=== PATIENT | female | born 1960 | race Caucasian/White ===

== ENCOUNTER 2018-01-19 11:42 | Emergency (ER) | payer SELFPAY ==
[2018-01-19 12:17] LABS: Absolute Lymphocytes (CBC) 3.2 K/uL (0.7-4.9); Absolute Monocytes 0.6 K/uL (0.1-1.3); Absolute Neutrophil 5.5 K/uL (1.8-8.0); Basophils % 1.1 % (0-1.3); Eosinophils % 1.2 % (0-4.4); Hematocrit 44.6 % (36.0-45.0); Lymphocytes % 33.4 % (15.3-44.8); MCH 29.4 pg (27.0-35.0); MCV 84.4 fL (80-100); MPV 7.2 fL (7.6-11.3); Monocytes % 6.8 % (3.3-12.3); RBC Red Blood Cell Count 5.29 M/uL (3.86-4.86)
[2018-01-19 12:47] LABS: ALT/SGPT 25 U/L (12-78); AST/SGOT 14 U/L (15-37); Albumin 3.7 g/dL (3.4-5.0); Alkaline Phosphatase 83 U/L (45-117); BUN Blood Urea Nitrogen 17 mg/dL (7-18); Bicarbonate 25 mmol/L (21-32); Bilirubin Direct < 0.1 mg/dL (0-0.2); Bilirubin Total 0.4 mg/dL (0.2-1.0); Glucose Level 134 mg/dL (74-106); Lipase 204 U/L (73-393); Protein, Total 6.9 g/dL (6.4-8.2); Sodium Level 138 mmol/L (136-145)
--- NOTE | 2018-01-19 12:51 | RAD REPORT ---
EXAM DESCRIPTION: RAD - Chest Single View - 01/19/2018 12:44 pm CLINICAL HISTORY: CHEST PAIN Chest pain. COMPARISON: CHEST SINGLE VIEW dated 07/30/2015; CHEST SINGLE VIEW dated 03/06/2015 FINDINGS: Portable technique limits examination quality. The lungs are grossly clear. The heart is normal in size. No displaced fractures. IMPRESSION: No acute intrathoracic process suspected.
--- NOTE | 2018-01-19 14:48 | ER ---
Nurse's Notes [facility] Name: Janell Presley Age: 57 yrs Sex: Female : 1960 Arrival Date: 01/19/2018 Time: 11:45 Bed 8 Private MD: Diagnosis: Chest pain, unspecified Presentation: 01/19 11:45 Presenting complaint: EMS states: pt was at [place], when she developed some sg shortness of breath and midsternal chestpain described a 10/10 pt reports having hx of anxiety, shortness of breath, anxiety, bipolar disorder. Once in the ambulance the pt was calmed down and reports her CP went down from a 10/10 to a 3/10 and reported feeling better. Transition of care: patient was not received from another setting of care. Onset of symptoms was January 19, 2018. Risk Assessment: Do you want to hurt yourself or someone else? Patient reports no desire to harm self or others. Initial Sepsis Screen: Does the patient meet any 2 criteria? No. Patient's initial sepsis screen is negative. Does the patient have a suspected source of infection? No. Patient's initial sepsis screen is negative. Care prior to arrival: None. 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 N/A - Post-menopause sg Historical: - Allergies: 11:49 HYDROCODONE; sg - Home Meds: 11:49 atorvastatin Oral once daily [Active]; citalopram 20 mg tab 1 tab once daily [Active]; sg gabapentin 900 mg Oral tab 1 tab 3 times per day [Active]; glimepiride 4 mg Oral tab 1 tab once daily [Active]; Lamictal 100 mg Oral tab 1 tab 2 times per day [Active]; Lyrica Oral 300 mg 3 times per day [Active]; metformin 500 mg Oral tab 1 tab 2 times per day [Active]; omeprazole 20 mg Oral cpDR 1 cap 2 times per day [Active]; Trazodone Oral nightly [Active]; Zantac 150 mg Oral tab once daily [Active]; - PMHx: 11:49 Bipolar disorder; Depression; Diabetes - NIDDM; GERD; High Cholesterol; neuropathy; sg - PSHx: 11:49 CLOSED HEAD INJURY; BACK SURGERY 1999; LEFT OOPHRECTOMY 2008; sg - Immunization history:: Adult Immunizations up to date. - Social history:: Smoking status: Patient uses tobacco products. - Ebola Screening: : Patient negative for fever greater than or equal to 101.5 degrees Fahrenheit, and additional compatible Ebola Virus Disease symptoms Patient denies exposure to infectious person Patient denies travel to an Ebola-affected area in the 21 days before illness onset No symptoms or risks identified at this time. - Family history:: not pertinent. - Hospitalizations: : No recent hospitalization is reported. Screenin:50 Abuse screen: Denies threats or abuse. Denies injuries from another. Nutritional sg screening: No deficits noted. Tuberculosis screening: No symptoms or risk factors identified. Never had TB. Fall Risk None identified. Assessment: 12:10 General: Appears in no apparent distress. comfortable, well groomed, well developed, sg well nourished, Behavior is calm, cooperative, appropriate for age. Pain: Complains of pain in mid-sternal area Pain does not radiate. Quality of pain is described as sharp. 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 Full function Speech is normal, Facial symmetry appears normal. Cardiovascular: Capillary refill is brisk in bilateral fingers Patient's skin is warm and dry. Chest pain is described as vague, quality is pressure, sharp, is located in anterior chest wall substernal area. Respiratory: Airway is patent Respiratory effort is even, unlabored, Respiratory pattern is regular, symmetrical, Breath sounds are clear. GI: Abdomen is round non-distended, Reports normal bowel habits, tolerance of fluids, tolerance of food. : No signs and/or symptoms were reported regarding the genitourinary system. EENT: No signs and/or symptoms were reported regarding the EENT system. Derm: Skin is pink, warm \T\ dry. Musculoskeletal: No signs and/or symptoms reported regarding the musculoskeletal system. 13:24 Reassessment: Patient appears in no apparent distress at this time. Patient and/or sg family updated on plan of care and expected duration. Pain level reassessed. Patient is alert, oriented x 3, equal unlabored respirations, skin warm/dry/pink. Patient states feeling better. Vital Signs: 11:50 BP 120 / 50; Pulse 72; Resp 16; Temp 97.9; Pulse Ox 98% on R/A; Weight 78.02 kg (R); sg Pain 3/10; 12:29 BP 116 / 51; Pulse 76; Resp 18; Pulse Ox 96% on R/A; Pain 3/10; sg 13:24 BP 113 / 59; Pulse 74 MON; Resp 16 S; Pulse Ox 96% on R/A; Pain 2/10; sg 14:44 BP 106 / 66; Pulse 77; Resp 17 S; Pulse Ox 98% on R/A; sg ED Course: 11:45 Patient arrived in ED. sg 11:46 Yoseph Grigsby NP is PHCP. pm1 11:46 Scott Funes MD is Attending Physician. pm1 11:47 Triage completed. sg 11:47 Arm band placed on. sg 11:51 Mike Nicolas RN is Primary Nurse. sg 12:00 Initial lab(s) drawn, by me, sent to lab. Missed attempt(s): 22 gauge in right sg antecubital area. Bleeding controlled, band aid applied, catheter tip intact. 12:43 X-ray completed. Portable x-ray completed in exam room. Patient tolerated procedure ml well. 12:45 XRAY Chest (1 view) In Process Unspecified. EDMS 13:24 Diet: Patient given water. sg 14:10 Repeat lab(s) drawn. by me, sent to lab. sg Administered Medications: No medications were administered Outcome: 14:47 Discharge ordered by . rn 14:53 Patient left the ED. sg Signatures: Dispatcher [employer] EDMS Mike Nicolas RN RN sg Lopez, Melissa ml Nieto, Roman, MD MD rn Marinas, Patrick, NP LAMBSKIN TRIMMER pm1 Corrections: (The following items were deleted from the chart) 12:27 12:19 Reassessment: sg
--- NOTE | 2018-01-19 14:48 | EDPHYS ---
Physician Documentation [facility] Name: Janell Presley Age: 57 yrs Sex: Female : 1960 Arrival Date: 01/19/2018 Time: 11:45 Bed 8 Private MD: ED Physician Scott Funes HPI: 01/19 11:54 This 57 yrs old Female presents to ER via EMS with complaints of Chest Pain, rn Anxiety. 11:54 The patient or guardian reports chest pain that is located primarily in the substernal rn area. Onset: just prior to arrival. The pain radiates to the left arm. The chest pain is described as a pressure. Duration: The patient or guardian reports a single episode, that is now resolved. Modifying factors: The symptoms are alleviated by nothing. the symptoms are aggravated by nothing. The patient has experienced a previous episode. Reports chest pain, pressure, radiates to left shoulder region, happened at rest, felt fine prior, no fever/cough/sob, no abd pain, has had episodes in past, told anxiety or heartburn. . 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 sg Historical: - Allergies: 11:49 HYDROCODONE; sg - Home Meds: 11:49 atorvastatin Oral once daily [Active]; citalopram 20 mg tab 1 tab once daily [Active]; sg gabapentin 900 mg Oral tab 1 tab 3 times per day [Active]; glimepiride 4 mg Oral tab 1 tab once daily [Active]; Lamictal 100 mg Oral tab 1 tab 2 times per day [Active]; Lyrica Oral 300 mg 3 times per day [Active]; metformin 500 mg Oral tab 1 tab 2 times per day [Active]; omeprazole 20 mg Oral cpDR 1 cap 2 times per day [Active]; Trazodone Oral nightly [Active]; Zantac 150 mg Oral tab once daily [Active]; - PMHx: 11:49 Bipolar disorder; Depression; Diabetes - NIDDM; GERD; High Cholesterol; neuropathy; sg - PSHx: 11:49 CLOSED HEAD INJURY; BACK SURGERY 1999; LEFT OOPHRECTOMY 2008; sg - Immunization history:: Adult Immunizations up to date. - Social history:: Smoking status: Patient uses tobacco products. - Ebola Screening: : Patient negative for fever greater than or equal to 101.5 degrees Fahrenheit, and additional compatible Ebola Virus Disease symptoms Patient denies exposure to infectious person Patient denies travel to an Ebola-affected area in the 21 days before illness onset No symptoms or risks identified at this time. - Family history:: not pertinent. - Hospitalizations: : No recent hospitalization is reported. ROS: 11:54 Constitutional: Negative for fever, chills, and weight loss, Eyes: Negative for injury, rn pain, redness, and discharge, Neck: Negative for injury, pain, and swelling, Cardiovascular: Negative for palpitations, and edema, Respiratory: Negative for shortness of breath, cough, wheezing, and pleuritic chest pain, Abdomen/GI: Negative for abdominal pain, vomiting, diarrhea, and constipation, MS/Extremity: Negative for injury and deformity, Skin: Negative for injury, rash, and discoloration, Neuro: Negative for headache, weakness, numbness, tingling, and seizure. Exam: 11:54 Constitutional: This is a well developed, well nourished patient who is awake, alert, rn and in no acute distress. Head/Face: Normocephalic, atraumatic. Eyes: Pupils equal round and reactive to light, extra-ocular motions intact. Lids and lashes normal. Conjunctiva and sclera are non-icteric and not injected. Cornea within normal limits. Periorbital areas with no swelling, redness, or edema. Neck: Trachea midline, no thyromegaly or masses palpated, and no cervical lymphadenopathy. Supple, full range of motion without nuchal rigidity, or vertebral point tenderness. No Meningismus. Cardiovascular: Regular rate and rhythm with a normal S1 and S2. No gallops, murmurs, or rubs. Normal PMI, no JVD. No pulse deficits. Respiratory: Lungs have equal breath sounds bilaterally, clear to auscultation and percussion. No rales, rhonchi or wheezes noted. No increased work of breathing, no retractions or nasal flaring. Abdomen/GI: Soft, non-tender, with normal bowel sounds. No distension or tympany. No guarding or rebound. No evidence of tenderness throughout. MS/ Extremity: Pulses equal, no cyanosis. Neurovascular intact. Full, normal range of motion. Equal circumference. Neuro: Awake and alert, GCS 15, oriented to person, place, time, and situation. Cranial nerves II-XII grossly intact. Motor strength 5/5 in all extremities. Sensory grossly intact. Vital Signs: 11:50 BP 120 / 50; Pulse 72; Resp 16; Temp 97.9; Pulse Ox 98% on R/A; Weight 78.02 kg (R); sg Pain 3/10; 12:29 BP 116 / 51; Pulse 76; Resp 18; Pulse Ox 96% on R/A; Pain 3/10; sg 13:24 BP 113 / 59; Pulse 74 MON; Resp 16 S; Pulse Ox 96% on R/A; Pain 2/10; sg 14:44 BP 106 / 66; Pulse 77; Resp 17 S; Pulse Ox 98% on R/A; sg MDM: 11:48 Patient medically screened. pm1 14:43 Differential diagnosis: acute myocardial infarction, acute pericarditis, anxiety, rn coronary artery disease chest wall pain, gastroesophageal reflux disease (GERD), pericarditis, pleurisy, pneumothorax, stable angina. Data reviewed: vital signs, nurses notes, lab test result(s), EKG, radiologic studies, plain films, and as a result, I will discharge patient. Counseling: I had a detailed discussion with the patient and/or guardian regarding: the historical points, exam findings, and any diagnostic results supporting the discharge/admit diagnosis, lab results, radiology results, the need for outpatient follow up, to return to the emergency department if symptoms worsen or persist or if there are any questions or concerns that arise at home. Refusal of service: The patient/guardian displays adequate decision making capability and despite a detailed discussion of alternatives, benefits, risks, and consequences refuses: Admission to the hospital for further work-up and treatment. Special discussion: Based on the patient's history, exam, and Dx evaluation, there is no indication for emergent intervention or inpatient Tx. It is understood by the patient/guardian that if the Sx's persist or worsen they need to return immediately for re-evaluation. I discussed with the patient/guardian in detail that at this point there is no indication for admission to the hospital. It is understood, however, that if the symptoms persist or worsen the patient needs to return immediately for re-evaluation. ED course: Pt sleeping, neg trop x 2, no ischemia on ECG, offered admission/observation for chest pain w/u since no clear etiology obtained, patient declines admission, wants to go home, understands risks, and will return if worsens, I recommended f/u with pcp and cardiology. . 01/19 11:50 Order name: LFT's; Complete Time: 12:51 rn 01/19 11:50 Order name: Basic Metabolic Panel; Complete Time: 12:51 rn 01/19 11:50 Order name: CBC with Diff; Complete Time: 12:51 rn 01/19 11:50 Order name: Troponin (emerg Dept Use Only); Complete Time: 12:51 rn 01/19 11:50 Order name: Lipase; Complete Time: 12:51 rn 01/19 14:04 Order name: Troponin (emerg Dept Use Only); Complete Time: 14:43 rn 01/19 11:50 Order name: XRAY Chest (1 view); Complete Time: 13:28 rn 01/19 11:50 Order name: EKG; Complete Time: 11:50 rn 01/19 11:50 Order name: Cardiac monitoring; Complete Time: 12:19 rn 01/19 11:50 Order name: EKG - Nurse/Tech; Complete Time: 12:19 rn 01/19 11:50 Order name: IV Saline Lock; Complete Time: 12:20 rn 01/19 11:50 Order name: Labs collected and sent; Complete Time: 12:19 rn 01/19 11:50 Order name: O2 Per Protocol; Complete Time: 12:19 rn 01/19 11:50 Order name: O2 Sat Monitoring; Complete Time: 12:43 rn Administered Medications: No medications were administered Disposition: 01/19/18 14:47 Discharged to Home. Impression: Chest pain, unspecified. - Condition is Stable. - Discharge Instructions: Nonspecific Chest Pain. - Medication Reconciliation Form, Thank You Letter, Antibiotic Education, Prescription Opioid Use form. - Follow up: Private Physician; When: As needed; Reason: Recheck today's complaints, Re-evaluation by your physician. - Problem is new. - Symptoms have improved. Signatures: Dispatcher [employer] EDMS Mike Nicolas RN MIKIE sg Scott Funes MD MD rn Marinas, Patrick, CONTACT PRINTER DRY FILM CONTACT PRINTER DRY FILM pm1 Corrections: (The following items were deleted from the chart) 14:53 14:47 01/19/2018 14:47 Discharged to Home. Impression: Chest pain, unspecified. sg Condition is Stable. Forms are Medication Reconciliation Form, Thank You Letter, Antibiotic Education, Prescription Opioid Use. Follow up: Private Physician; When: As needed; Reason: Recheck today's complaints, Re-evaluation by your physician. Problem is new. Symptoms have improved. rn
[2018-01-19 15:11] VITALS: TEMP 97.9
[2018-01-19 15:14] VITALS: BP 106/66; O2SAT 98
--- NOTE | 2018-01-20 11:44 | EKG ---
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
== END 2018-01-19 14:53 | disposition home or self-care (01) ==
LOC: ER 11:42
DX: R07.9 Chest pain, unspecified (principal); Z88.5 Allergy status to narcotic agent; E11.40 Type 2 diabetes mellitus with diabetic neuropathy, unspecified; Z79.84 Long term (current) use of oral hypoglycemic drugs; K21.9 Gastro-esophageal reflux disease without esophagitis; E78.00 Pure hypercholesterolemia, unspecified
CPT/HCPCS: 36415; 71045; 80048; 80076; 83690; 84484; 85025; 93005; 99283

== ENCOUNTER 2018-05-16 22:59 | Emergency (ER) | payer SELFPAY ==
[2018-05-16 23:50] LABS: Absolute Lymphocytes (CBC) 4.5 K/uL (0.7-4.9); Absolute Monocytes 0.7 K/uL (0.1-1.3); Absolute Neutrophil 4.7 K/uL (1.8-8.0); Eosinophils % 1.3 % (0-4.4); Hematocrit 39.4 % (36.0-45.0); Lymphocytes % 44.1 % (15.3-44.8); MCH 29.9 pg (27.0-35.0); MCV 85.4 fL (80-100); MPV 7.7 fL (7.6-11.3); Monocytes % 6.9 % (3.3-12.3); RBC Red Blood Cell Count 4.61 M/uL (3.86-4.86)
[2018-05-16 23:54] LABS: Protime INR 0.87
[2018-05-17 00:09] LABS: ALT/SGPT 27 U/L (12-78); AST/SGOT 12 U/L (15-37); Albumin 3.7 g/dL (3.4-5.0); Alkaline Phosphatase 84 U/L (45-117); BUN Blood Urea Nitrogen 22 mg/dL (7-18); Bicarbonate 26 mmol/L (21-32); Bilirubin Direct < 0.1 mg/dL (0-0.2); Bilirubin Total 0.4 mg/dL (0.2-1.0); Glucose Level 111 mg/dL (74-106); Magnesium 1.9 mg/dL (1.8-2.4); NT PRO-BNP 98 pg/mL (<125); Potassium 4.3 mmol/L (3.5-5.1); Protein, Total 6.6 g/dL (6.4-8.2); Sodium Level 137 mmol/L (136-145); Troponin (Emerg Dept Use Only) < 0.02 ng/mL (0.0-0.045)
--- NOTE | 2018-05-17 03:13 | EDPHYS ---
Physician Documentation [facility] Name: Janell Presley Age: 58 yrs Sex: Female : 1960 Arrival Date: 05/16/2018 Time: 23:01 Bed 14 Private MD: None, None ED Physician Luis Enrique Britt HPI: 05/17 03:06 This 58 yrs old Female presents to ER via Ambulatory with complaints of Chest gs Pain. 03:06 The patient or guardian reports chest pain that is located primarily in the anterior gs chest wall. Onset: 2 month(s) ago. The pain does not radiate. Associated signs and symptoms: Pertinent positives: cough, Pertinent negatives: abdominal pain, diaphoresis, shortness of breath. The chest pain is described as dull. Duration: The patient or guardian reports multiple episodes, that are intermittent, that wax and wane, with no pattern, the episodes last approximately 5 minute(s). Modifying factors: The symptoms are alleviated by nothing. the symptoms are aggravated by nothing. Severity of pain: At its worst the pain was moderate in the emergency department the pain has resolved. The patient has experienced similar episodes in the past, multiple times. Historical: - Allergies: 05/16 23:22 HYDROCODONE; jb4 23:22 Vicodin; jb4 - Home Meds: 23:22 atorvastatin Oral once daily [Active]; citalopram 20 mg tab 1 tab once daily [Active]; jb4 gabapentin 900 mg Oral tab 1 tab 3 times per day [Active]; glimepiride 4 mg Oral tab 1 tab once daily [Active]; Lamictal 100 mg Oral tab 1 tab 2 times per day [Active]; Lyrica Oral 300 mg 3 times per day [Active]; metformin 500 mg Oral tab 1 tab 2 times per day [Active]; omeprazole 20 mg Oral cpDR 1 cap 2 times per day [Active]; Trazodone Oral nightly [Active]; Zantac 150 mg Oral tab once daily [Active]; endomethasone [Active]; Lisinopril Oral [Active]; - PMHx: 23:22 Bipolar disorder; Depression; Diabetes - NIDDM; GERD; High Cholesterol; neuropathy; jb4 - PSHx: 23:22 CLOSED HEAD INJURY; BACK SURGERY 1999; LEFT OOPHRECTOMY 2008; jb4 - Immunization history:: Adult Immunizations up to date, Flu vaccine is not up to date. - Social history:: Smoking status: Patient uses tobacco products, smokes one-half pack cigarettes per day. - Ebola Screening: : No symptoms or risks identified at this time. ROS: 05/17 03:06 All other systems are negative. gs Exam: 03:06 Head/Face: Normocephalic, atraumatic. Eyes: Pupils equal round and reactive to light, gs extra-ocular motions intact. Lids and lashes normal. Conjunctiva and sclera are non-icteric and not injected. Cornea within normal limits. Periorbital areas with no swelling, redness, or edema. ENT: Nares patent. No nasal discharge, no septal abnormalities noted. Tympanic membranes are normal and external auditory canals are clear. Oropharynx with no redness, swelling, or masses, exudates, or evidence of obstruction, uvula midline. Mucous membranes moist. Neck: Trachea midline, no thyromegaly or masses palpated, and no cervical lymphadenopathy. Supple, full range of motion without nuchal rigidity, or vertebral point tenderness. No Meningismus. Chest/axilla: Normal chest wall appearance and motion. Nontender with no deformity. No lesions are appreciated. Cardiovascular: Regular rate and rhythm with a normal S1 and S2. No gallops, murmurs, or rubs. Normal PMI, no JVD. No pulse deficits. Respiratory: Lungs have equal breath sounds bilaterally, clear to auscultation and percussion. No rales, rhonchi or wheezes noted. No increased work of breathing, no retractions or nasal flaring. Abdomen/GI: Soft, non-tender, with normal bowel sounds. No distension or tympany. No guarding or rebound. No evidence of tenderness throughout. Back: No spinal tenderness. No costovertebral tenderness. Full range of motion. Skin: Warm, dry with normal turgor. Normal color with no rashes, no lesions, and no evidence of cellulitis. MS/ Extremity: Pulses equal, no cyanosis. Neurovascular intact. Full, normal range of motion. Neuro: Awake and alert, GCS 15, oriented to person, place, time, and situation. Cranial nerves II-XII grossly intact. Motor strength 5/5 in all extremities. Sensory grossly intact. Cerebellar exam normal. Normal gait. 03:06 Constitutional: The patient appears alert, awake. 03:06 ECG was reviewed by the Attending Physician. 03:10 ECG was reviewed by the Attending Physician. Vital Signs: 05/16 23:22 BP 120 / 60; Pulse 81; Resp 18; Temp 98.2(O); Pulse Ox 96% on R/A; Weight 84.82 kg (R); jb4 Height 5 ft. 8 in. (172.72 cm) (R); Pain 4/10; 05/17 01:00 BP 117 / 40; Pulse 70; Resp 16; Pulse Ox 96% on R/A; jb4 01:45 BP 99 / 58; Pulse 71; Resp 17; Pulse Ox 94% on R/A; jb4 03:01 BP 110 / 47; Pulse 63; Resp 16; Pulse Ox 96% on R/A; jb4 12 23:22 Body Mass Index 28.43 (84.82 kg, 172.72 cm) jb4 MDM: 05/16 23:31 Patient medically screened. 05/17 03:10 Differential diagnosis: coronary artery disease chest wall pain, congestive heart gs failure. Data reviewed: vital signs, nurses notes. Counseling: I had a detailed discussion with the patient and/or guardian regarding: the historical points, exam findings, and any diagnostic results supporting the discharge/admit diagnosis, lab results, radiology results, the need for outpatient follow up, a strategic partnership specialist. Response to treatment: the patient's symptoms have resolved after treatment, the patient's pain is gone, and as a result, I will discharge patient. 03:13 HEART Score: History: Slightly Suspicious (0), ECG: Normal (0), Age: > 45 and < 65 gs years (1), Risk Factors: > or = 3 Risk factors for atherosclerotic disease (2), Troponin: < or = 1 x Normal Limit (0). 05/16 23:32 Order name: Basic Metabolic Panel 05/16 23:32 Order name: CBC with Diff 05/16 23:32 Order name: LFT's; Complete Time: 00:48 05/16 23:32 Order name: Magnesium; Complete Time: 00:48 05/16 23:32 Order name: NT PRO-BNP; Complete Time: 00:48 05/16 23:32 Order name: PT-INR; Complete Time: 00:48 05/16 23:32 Order name: Troponin (emerg Dept Use Only); Complete Time: 00:48 gs 05/16 23:32 Order name: XRAY Chest (1 view) 05/16 23:32 Order name: EKG; Complete Time: 23:33 12 23:32 Order name: Cardiac monitoring; Complete Time: 23:35 12 23:32 Order name: EKG - Nurse/Tech; Complete Time: 23:35 05/16 23:33 Order name: Basic Metabolic Panel; Complete Time: 00:48 EDMS 12 23:33 Order name: CBC with Automated Diff; Complete Time: 00:48 EDMS 12 01:19 Order name: Troponin (emerg Dept Use Only); Complete Time: 03:03 05/16 23:32 Order name: IV Saline Lock; Complete Time: 23:35 05/16 23:32 Order name: Labs collected and sent; Complete Time: 23:35 05/16 23:32 Order name: O2 Per Protocol; Complete Time: 23:35 05/16 23:32 Order name: O2 Sat Monitoring; Complete Time: 23:35 gs EC:06 Rate is 67 beats/min. Rhythm is regular. NE interval is normal. QRS interval is normal. gs T waves are Normal. No ST changes noted. Clinical impression: Normal ECG. Interpreted by me. 03:10 Rate is 64 beats/min. Rhythm is regular. NE interval is normal. T waves are Normal. No gs ST changes noted. Clinical impression: Normal ECG. Interpreted by me. Administered Medications: No medications were administered Disposition: 05/17/18 03:12 Discharged to Home. Impression: Chest pain, unspecified. - Condition is Stable. - Discharge Instructions: Nonspecific Chest Pain. - Medication Reconciliation Form, Thank You Letter, Antibiotic Education, Prescription Opioid Use form. - Follow up: Gerald Alexis MD; When: 2 - 3 days; Reason: Re-evaluation by your physician. Signatures: Dispatcher [employer] EDRiaz Marti, RN RN jb4 Luis Enrique Britt MD MD gs Corrections: (The following items were deleted from the chart) 03:16 03:10 HEART Score: History: Slightly Suspicious (0), ECG: Normal (0), Age: > 45 and < gs 65 years (1), Risk Factors: 1 or 2 risk factors (1), [DM] Troponin: < or = 1 x Normal Limit (0), gs 03:28 03:12 05/17/2018 03:12 Discharged to Home. Impression: Chest pain, unspecified. jb4 Condition is Stable. Forms are Medication Reconciliation Form, Thank You Letter, Antibiotic Education, Prescription Opioid Use. Follow up: Gerald Alexis; When: 2 - 3 days; Reason: Re-evaluation by your physician. gs
--- NOTE | 2018-05-17 03:13 | ER ---
Nurse's Notes [facility] Name: Janell Presley Age: 58 yrs Sex: Female : 1960 Arrival Date: 05/16/2018 Time: 23:01 Bed 14 Private MD: None, None Diagnosis: Chest pain, unspecified Presentation: 05/16 23:12 Presenting complaint: Patient states: I have been having frequent chest pain, for the jb4 past few weeks. It doesn't really hurt I just have a pressure feeling on my chest. Transition of care: patient was not received from another setting of care. Onset of symptoms was May 16, 2018. Risk Assessment: Do you want to hurt yourself or someone else? Patient reports no desire to harm self or others. Initial Sepsis Screen: Does the patient meet any 2 criteria? No. Patient's initial sepsis screen is negative. Does the patient have a suspected source of infection? No. Patient's initial sepsis screen is negative. Care prior to arrival: None. 23:12 Method Of Arrival: Ambulatory jb4 23:12 Acuity: [place] 3 jb4 Historical: - Allergies: 23:22 HYDROCODONE; jb4 23:22 Vicodin; jb4 - Home Meds: 23:22 atorvastatin Oral once daily [Active]; citalopram 20 mg tab 1 tab once daily [Active]; jb4 gabapentin 900 mg Oral tab 1 tab 3 times per day [Active]; glimepiride 4 mg Oral tab 1 tab once daily [Active]; Lamictal 100 mg Oral tab 1 tab 2 times per day [Active]; Lyrica Oral 300 mg 3 times per day [Active]; metformin 500 mg Oral tab 1 tab 2 times per day [Active]; omeprazole 20 mg Oral cpDR 1 cap 2 times per day [Active]; Trazodone Oral nightly [Active]; Zantac 150 mg Oral tab once daily [Active]; endomethasone [Active]; Lisinopril Oral [Active]; - PMHx: 23:22 Bipolar disorder; Depression; Diabetes - NIDDM; GERD; High Cholesterol; neuropathy; jb4 - PSHx: 23:22 CLOSED HEAD INJURY; BACK SURGERY 1999; LEFT OOPHRECTOMY 2008; jb4 - Immunization history:: Adult Immunizations up to date, Flu vaccine is not up to date. - Social history:: Smoking status: Patient uses tobacco products, smokes one-half pack cigarettes per day. - Ebola Screening: : No symptoms or risks identified at this time. Screenin:24 Abuse screen: Denies threats or abuse. Nutritional screening: No deficits noted. jb4 Tuberculosis screening: No symptoms or risk factors identified. Fall Risk IV access (20 points). Assessment: 23:24 General: Appears in no apparent distress. comfortable, Behavior is calm, cooperative, jb4 appropriate for age. Pain: Complains of pain in chest Pain does not radiate. Pain currently is 4 out of 10 on a pain scale. Quality of pain is described as pressure, Pain began 1 day ago. Neuro: Level of Consciousness is awake, alert, obeys commands, Oriented to person, place, time, situation. Cardiovascular: Patient's skin is warm and dry. Rhythm is sinus rhythm. Respiratory: Airway is patent Respiratory effort is even, unlabored, Respiratory pattern is regular, symmetrical. GI: Reports nausea. : No signs and/or symptoms were reported regarding the genitourinary system. EENT: No signs and/or symptoms were reported regarding the EENT system. Derm: Skin is intact, Skin is pink, warm \T\ dry. Musculoskeletal: Circulation, motion, and sensation intact. 05/17 00:45 Reassessment: Patient appears in no apparent distress at this time. Patient and/or jb4 family updated on plan of care and expected duration. Pain level reassessed. Patient is alert, oriented x 3, equal unlabored respirations, skin warm/dry/pink. Pt complaining of increased chest pain. Provider notified, No new orders. EKG performed, Given to provider. 01:57 Reassessment: Patient appears in no apparent distress at this time. Patient and/or jb4 family updated on plan of care and expected duration. Pain level reassessed. Given water per pt request. Resting with eyes closed, respirations even and unlabored. 03:01 Reassessment: Patient appears in no apparent distress at this time. No changes from jb4 previously documented assessment. Patient and/or family updated on plan of care and expected duration. Pain level reassessed. 03:26 Reassessment: Patient appears in no apparent distress at this time. No changes from jb4 previously documented assessment. Patient and/or family updated on plan of care and expected duration. Pain level reassessed. Discussed D/c, F/u with pt, denies questions and concerns. Vital Signs: 05/16 23:22 BP 120 / 60; Pulse 81; Resp 18; Temp 98.2(O); Pulse Ox 96% on R/A; Weight 84.82 kg (R); jb4 Height 5 ft. 8 in. (172.72 cm) (R); Pain 4/10; 05/17 01:00 BP 117 / 40; Pulse 70; Resp 16; Pulse Ox 96% on R/A; jb4 01:45 BP 99 / 58; Pulse 71; Resp 17; Pulse Ox 94% on R/A; jb4 03:01 BP 110 / 47; Pulse 63; Resp 16; Pulse Ox 96% on R/A; jb4 12 23:22 Body Mass Index 28.43 (84.82 kg, 172.72 cm) jb4 ED Course: 05/16 23:01 Patient arrived in ED. sb2 23:01 None, None is Private Physician. sb2 23:04 Luis Enrique Britt MD is Attending Physician. gs 23:12 Riaz Dougherty, RN is Primary Nurse. jb4 23:15 Triage completed. jb4 23:22 Arm band placed on left wrist. EKG completed in triage. Results shown to MD. jb4 23:24 Patient has correct armband on for positive identification. Placed in gown. Bed in low jb4 position. Call light in reach. Side rails up X 1. classroom monitor on. Pulse ox on. NIBP on. 23:24 Patient maintains SpO2 saturation greater than 95% on room air. jb4 23:46 Inserted saline lock: 22 gauge in right antecubital area, using aseptic technique. ag4 Blood collected. 23:51 X-ray completed. Portable x-ray completed in exam room. Patient tolerated procedure kw well. 23:52 XRAY Chest (1 view) In Process Unspecified. EDMS 05/17 01:01 EKG done, by ED staff, reviewed by Luis Enrique Britt MD. ds4 03:12 Gerald Alexis MD is Referral Physician. gs 03:26 No provider procedures requiring assistance completed. IV discontinued, intact, jb4 bleeding controlled. Administered Medications: No medications were administered Outcome: 03:12 Discharge ordered by MD. gs 03:26 Discharged to home ambulatory. jb4 03:26 Condition: stable 03:26 Discharge instructions given to patient, Instructed on discharge instructions, follow up and referral plans. Demonstrated understanding of instructions, follow-up care. 03:28 Patient left the ED. jb4 Signatures: Dispatcher [employer] EDAngelina Rodriguez Donovan ds4 Riaz Dougherty RN RN jb4 Luis Enrique Britt MD MD gs Billeau, Sheri sb2 Maurizio Garcia ag4
[2018-05-17 03:35] VITALS: TEMP 98.2
[2018-05-17 03:39] VITALS: BP 110/47; O2SAT 96
--- NOTE | 2018-05-17 08:20 | RAD REPORT ---
EXAM DESCRIPTION: RAD - Chest Single View - 05/16/2018 11:52 pm CLINICAL HISTORY: CHEST PAIN Chest pain. COMPARISON: Chest Single View dated 01/19/2018; CHEST SINGLE VIEW dated 07/30/2015; CHEST SINGLE VIEW dated 03/06/2015 FINDINGS: Portable technique limits examination quality. The lungs are grossly clear. The heart is normal in size. No displaced fractures. IMPRESSION: No acute intrathoracic process suspected.
--- NOTE | 2018-05-17 08:29 | EKG ---
Test Date: 2018-05-16 Test Time: 23:12:56 Strategic Client Executive: AG3 MEASUREMENT RESULTS: Intervals: Rate: 67 SC: 188 QRSD: 86 QT: 380 QTc: 401 [place]: P: 53 SC: 188 QRS: 8 T: 62 INTERPRETIVE STATEMENTS: Normal sinus rhythm Normal ECG Compared to ECG 01/19/2018 11:45:30 Myocardial infarct finding no longer present Electronically Signed On 05-17-18 08:28:20 MANAGER LONG TERM CARE by Gerald Alexis
--- NOTE | 2018-05-17 08:32 | EKG ---
Test Date: 2018-05-17 Test Time: 00:54:22 Booking Officer: LINDEN MEASUREMENT RESULTS: Intervals: Rate: 64 [place]: 198 QRSD: 86 QT: 402 QTc: 414 [place]: P: 54 [place]: 198 QRS: 9 T: 56 INTERPRETIVE STATEMENTS: Normal sinus rhythm Normal ECG Compared to ECG 05/16/2018 23:12:56 No significant changes Electronically Signed On 05-17-18 08:32:02 DOT COMPLIANCE COORDINATOR by Gerald Alexis
== END 2018-05-17 03:28 | disposition home or self-care (01) ==
LOC: ER 22:59
DX: R07.9 Chest pain, unspecified (principal); E11.40 Type 2 diabetes mellitus with diabetic neuropathy, unspecified; E78.00 Pure hypercholesterolemia, unspecified; K21.9 Gastro-esophageal reflux disease without esophagitis; F31.9 Bipolar disorder, unspecified; F17.210 Nicotine dependence, cigarettes, uncomplicated; Z79.84 Long term (current) use of oral hypoglycemic drugs; Z79.899 Other long term (current) drug therapy
CPT/HCPCS: 36415; 71045; 80048; 80076; 83735; 83880; 84484; 85025; 85610; 93005; 99285

== ENCOUNTER 2018-09-26 09:26 | Emergency (ER) | payer OTHER ==
--- OUTSIDE RECORDS SUMMARY | 2018-09-26 09:29 | XMS REPORT ---
:1960 [facility] [address] [place] [address] Care Team Providers Name Role Phone Unavailable Unavailable Unavailable Problems This patient has no known problems. Allergies, Adverse Reactions, Alerts This patient has no known allergies or adverse reactions. Medications This patient has no known medications. Results Test Description Test Time Test Comments Text Results Atomic Results Result Comments SCR MAMM BILATERAL CAD 2018-07-11 15:56:42 - SCR MAMM BILATERAL CAD DIGITAL DIGITALBILATERAL DIGITAL SCREENING MAMMOGRAM WITH CAD: 07/05/2018CLINICAL: Asymptomatic. Current mammographic images were evaluated by either a Armasight M-Vu or a Semetric ImageChecker CAD (computer aided detection system). Comparison is made to exams dated 08/11/2016 mammogram - [facility], 12/03/2014 mammogram, and 04/12/2013 mammogram - [facility]. There are scattered fibroglandular tissues in both breasts. No suspicious mass, architectural distortion, malignant type calcification, or lymph node abnormality detected. Breast architecture is stable compared to prior exams.IMPRESSION: NEGATIVEThere is no mammographic evidence of malignancy. Resume annual screening mammography in one year. Yoseph bethea/roney:07/11/2018 15:56:42 Clerk Television Production: Nati Lilly MM, [facility] sent: BIRADS 1-2 Normal Mammogram BI-RADS: 1 Negative
[2018-09-26] MEDS ORDERED: ONDANSETRON 4 MG/2 ML VIAL ONE (10:18)
[2018-09-26] MEDS ORDERED: NA CHLORIDE 0.9% 1,000 ML ONE ×2 (10:18→12:07)
[2018-09-26 10:24] LABS: Absolute Monocytes 0.7 K/uL (0.1-1.3); Absolute Neutrophil 6.7 K/uL (1.8-8.0); Basophils % 1.3 % (0-1.3); Eosinophils % 1.6 % (0-4.4); Hematocrit 42.1 % (36.0-45.0); Lymphocytes % 27.8 % (15.3-44.8); MPV 7.1 fL (7.6-11.3); Monocytes % 6.2 % (3.3-12.3); RBC Red Blood Cell Count 5.03 M/uL (3.86-4.86)
[2018-09-26 10:41] LABS: Albumin 3.8 g/dL (3.4-5.0); Bilirubin Direct 0.2 mg/dL (0-0.2); Bilirubin Total 0.7 mg/dL (0.2-1.0); Potassium 4.7 mmol/L (3.5-5.1); Protein, Total 6.9 g/dL (6.4-8.2)
--- NOTE | 2018-09-26 14:30 | EDPHYS ---
Physician Documentation [facility] Name: Janell Presley Age: 58 yrs Sex: Female : 1960 Arrival Date: 09/26/2018 Time: 09:28 Bed 14 Private MD: ED Physician Luis Enrique Britt HPI: 09/26 10:00 This 58 yrs old Female presents to ER via Ambulatory with complaints of pm1 Vomiting/Diarrhea, Fever. 10:00 The patient presents to the emergency department with nausea, vomiting, diarrhea, pm1 abdominal pain, described as crampy. Onset: The symptoms/episode began/occurred today. Possible causes: accidental overdose of metformin. The symptoms are aggravated by nothing. The symptoms are alleviated by nothing. Associated signs and symptoms: Pertinent positives: abdominal pain, diarrhea, fever, nausea, vomiting. Severity of symptoms: in the emergency department the symptoms are worse. The patient has not experienced similar symptoms in the past. The patient has not recently seen a physician. Patient ran out of her gabapentin and started to take what she believed to be her father's gabapentin. The patient takes her gabapentin 4 times per day, TID and a HS dosage. Her father's medication ended up being metformin so the patient ended up taking approximately 4 grams of metformin daily for the past 4 days. 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 - Ebola Screening: : No symptoms or risks identified at this time. - Social history:: Smoking status: Patient/guardian denies using tobacco. ROS: 10:00 Constitutional: Negative for fever, chills, and weight loss, Eyes: Negative for injury, pm1 pain, redness, and discharge, ENT: Negative for injury, pain, and discharge, Neck: Negative for injury, pain, and swelling, Cardiovascular: Negative for chest pain, palpitations, and edema, Respiratory: Negative for shortness of breath, cough, wheezing, and pleuritic chest pain. 10:00 Back: Negative for injury and pain, : Negative for injury, bleeding, discharge, and swelling, MS/Extremity: Negative for injury and deformity, Skin: Negative for injury, rash, and discoloration, Neuro: Negative for headache, weakness, numbness, tingling, and seizure. 10:00 Abdomen/GI: Positive for nausea, vomiting, and diarrhea, abdominal cramps, Negative for constipation. Exam: 10:00 Constitutional: This is a well developed, well nourished patient who is awake, alert, pm1 and in no acute distress. Head/Face: Normocephalic, atraumatic. Eyes: Pupils equal round and reactive to light, extra-ocular motions intact. Lids and lashes normal. Conjunctiva and sclera are non-icteric and not injected. Cornea within normal limits. Periorbital areas with no swelling, redness, or edema. ENT: Nares patent. No nasal discharge, no septal abnormalities noted. Tympanic membranes are normal and external auditory canals are clear. Oropharynx with no redness, swelling, or masses, exudates, or evidence of obstruction, uvula midline. Mucous membranes moist. Neck: Trachea midline, no thyromegaly or masses palpated, and no cervical lymphadenopathy. Supple, full range of motion without nuchal rigidity, or vertebral point tenderness. No Meningismus. Chest/axilla: Normal chest wall appearance and motion. Nontender with no deformity. No lesions are appreciated. Cardiovascular: Regular rate and rhythm with a normal S1 and S2. No gallops, murmurs, or rubs. Normal PMI, no JVD. No pulse deficits. Respiratory: Lungs have equal breath sounds bilaterally, clear to auscultation and percussion. No rales, rhonchi or wheezes noted. No increased work of breathing, no retractions or nasal flaring. Abdomen/GI: Soft, non-tender, with normal bowel sounds. No distension or tympany. No guarding or rebound. No evidence of tenderness throughout. Back: No spinal tenderness. No costovertebral tenderness. Full range of motion. Skin: Warm, dry with normal turgor. Normal color with no rashes, no lesions, and no evidence of cellulitis. MS/ Extremity: Pulses equal, no cyanosis. Neurovascular intact. Full, normal range of motion. 10:00 Neuro: Orientation: is normal, Motor: is normal, moves all fours. Vital Signs: 09:31 BP 121 / 49; Pulse 65; Resp 20; Temp 98.4(O); Pulse Ox 100% ; aa5 10:49 BP 110 / 56; Pulse 66; Resp 18; Pulse Ox 100% on R/A; sg 13:09 BP 113 / 48; Pulse 80; Resp 18; Pulse Ox 98% ; mh5 14:00 BP 117 / 70; Pulse 74; Resp 19 S; Pulse Ox 100% on R/A; ca1 14:22 BP 126 / 77; Pulse 74; Resp 19; Pulse Ox 100% on R/A; ca1 MDM: 09:49 Patient medically screened. pm1 12:09 Data reviewed: vital signs. Data interpreted: Pulse oximetry: on room air is 100 %. pm1 Interpretation: normal. 12:14 ED course: Normal anion gap. Will give the patient additional fluids and repeat lactate pm1 level. 14:26 Counseling: I had a detailed discussion with the patient and/or guardian regarding: the pm1 historical points, exam findings, and any diagnostic results supporting the discharge/admit diagnosis, lab results, radiology results, the need for outpatient follow up, to return to the emergency department if symptoms worsen or persist or if there are any questions or concerns that arise at home. 09/26 09:53 Order name: Basic Metabolic Panel pm1 09/26 09:53 Order name: CBC with Diff pm1 09/26 09:53 Order name: Creatinine for Radiology; Complete Time: 11:26 pm1 09/26 09:53 Order name: Hepatic Function; Complete Time: 11:26 pm1 09/26 09:53 Order name: Lipase; Complete Time: 11:26 pm09/26 09:53 Order name: Lactate; Complete Time: 11:26 pm09/26 09:53 Order name: IV Saline Lock; Complete Time: 10:38 pm09/26 09:54 Order name: Basic Metabolic Panel; Complete Time: 11:26 EDMS 09/26 09:54 Order name: CBC with Automated Diff; Complete Time: 11:26 EDMS 09/26 12:10 Order name: Glucose, Ancillary Testing; Complete Time: 12:13 EDMS 09/26 14:14 Order name: Lactate Sepsis 2 HR Follow-up; Complete Time: 14:26 EDMS 09/26 09:53 Order name: Labs collected and sent; Complete Time: 10:27 pm1 09/26 09:53 Order name: Finger Stick; Complete Time: 10:37 pm1 Administered Medications: 10:35 Drug: NS 0.9% 1000 ml Route: IV; Rate: 1000 ml; Site: right wrist; sg 11:30 Follow up: Urine output 350 ml; Response: No adverse reaction; IV Status: Completed ca1 infusion 10:35 Drug: Zofran 4 mg Route: IVP; Site: right wrist; sg 12:30 Follow up: Response: No adverse reaction; Nausea is decreased ca1 11:53 Drug: NS 0.9% 1000 ml Route: IV; Rate: 1000 ml; Site: right hand; ca1 14:00 Follow up: Response: No adverse reaction; IV Status: Completed infusion ca1 Point of Care Testing: Blood Glucose: 09:32 Blood Glucose: 106 mg/dL; aa5 Ranges: Critical Glucose Levels:Adult <50 mg/dl or >400 mg/dl <40 mg/dl or >180 mg/dl Disposition: 09/26/18 14:30 Discharged to Home. Impression: Accidental drug overdose. - Condition is Stable. - Discharge Instructions: Drug Overdose. - Prescriptions for Zofran 4 mg Oral Tablet - take 1 tablet by ORAL route every 12 hours As needed; 20 tablet. - Medication Reconciliation Form, Thank You Letter, Antibiotic Education, Prescription Opioid Use form. - Follow up: Emergency Department; When: As needed; Reason: Worsening of condition. Follow up: Private Physician; When: 2 - 3 days; Reason: Recheck today's complaints, Continuance of care, Re-evaluation by your physician. - Problem is new. - Symptoms have improved. Addendum: 09/29/2018 00:11 Co-signature as Attending Physician, Luis Enrique Britt MD. g s Signatures: Dispatcher [employer] [facility] Mike Nicolas RN RN sg Madeline Parikh RN RN aa5 Yoseph Grigsby, PHYSICIAN NEONATOLOGY PHYSICIAN NEONATOLOGY pm1 Luis Enrique Britt MD MD Angely, Miri RN RN ca1 Corrections: (The following items were deleted from the chart) 09/26 14:54 14:30 09/26/2018 14:30 Discharged to Home. Impression: Accidental drug overdose. ca1 Condition is Stable. Forms are Medication Reconciliation Form, Thank You Letter, Antibiotic Education, Prescription Opioid Use. Follow up: Emergency Department; When: As needed; Reason: Worsening of condition. Follow up: Private Physician; When: 2 - 3 days; Reason: Recheck today's complaints, Continuance of care, Re-evaluation by your physician. Problem is new. Symptoms have improved. pm1 15:04 14:54 09/26/2018 14:30 Discharged to Home. Impression: Accidental drug overdose. ca1 Condition is Stable. Discharge Instructions: Drug Overdose. Forms are Medication Reconciliation Form, Thank You Letter, Antibiotic Education, Prescription Opioid Use. Follow up: Emergency Department; When: As needed; Reason: Worsening of condition. Follow up: Private Physician; When: 2 - 3 days; Reason: Recheck today's complaints, Continuance of care, Re-evaluation by your physician. Problem is new. Symptoms have improved. ca1
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
[2018-09-26 15:28] VITALS: TEMP 98.4
[2018-09-26 15:32] VITALS: O2SAT 100
[2018-09-26 15:33] VITALS: BP 126/77
== END 2018-09-26 15:04 | disposition home or self-care (01) ==
LOC: ER 09:26
DX: T38.3X1A Poisoning by insulin and oral hypoglycemic [antidiabetic] drugs, accidental (unintentional), initial encounter (principal); E11.9 Type 2 diabetes mellitus without complications; Z88.5 Allergy status to narcotic agent
CPT/HCPCS: 36415; 80048; 80076; 82962; 83605; 83690; 85025; 96361; 96374; 99284; J2405; J7030

== ENCOUNTER 2019-04-27 12:14 | Emergency (ER) | payer OTHER ==
--- OUTSIDE RECORDS SUMMARY | 2019-04-27 12:16 | XMS REPORT ---
:1960 [facility] Address [address] [place] [address] Dr. Early [address] [place] [id number] Care Team Providers Name Role Phone Unavailable [...] mammographic images were evaluated by either a [employer] M-Vu or a [employer] ImageChecker CAD (computer aided detection system). Comparison is made to exams dated 08/11/2016 mammogram - [facility], 12/03/2014 mammogram, and [facility]/12/[facility] There are scattered fibroglandular tissues in both breasts. No suspicious mass, architectural distortion, malignant type calcification, or lymph node abnormality detected. Breast architecture is stable compared to prior exams.IMPRESSION: NEGATIVEThere is no mammographic evidence of malignancy. Resume annual screening mammography in one year. Yoseph bethea/roney:07/11/2018 15:56:42 Electrotype Finisher: Nati Lilly MM, [facility]: BIRADS 1-2 Normal Mammogram BI-RADS: 1 Negative
--- NOTE | 2019-04-27 13:47 | EDPHYS ---
Physician Documentation [facility] Name: Janell Presley Age: 59 yrs Sex: Female : 1960 Arrival Date: 04/27/2019 Time: 12:16 Bed 20 Private MD: ED Physician Florentino Salgado HPI: 04/27 13:16 This 59 yrs old Female presents to ER via Ambulatory with complaints of Wrist kb Injury. 13:16 The patient or guardian reports decreased range of motion, injury, pain, swelling, kb tenderness. The complaints affect the left wrist diffusely. Context: The problem was sustained at home, resulted from a fall, on an outstretched hand. Onset: The symptoms/episode began/occurred started a few months ago after a fall and became worse today after a fall. Modifying factors: The symptoms are alleviated by nothing, the symptoms are aggravated by movement. Associated signs and symptoms: The patient has no apparent associated signs or symptoms. The patient has not experienced similar symptoms in the past. The patient has not recently seen a physician. Historical: - Allergies: 12:20 Vicodin; la1 12:20 Codeine; la1 - PMHx: 12:20 "Aortic valve leak"; Bipolar disorder; Depression; Diabetes - NIDDM; GERD; High la1 Cholesterol; Left carotid artery- 70% blockage; neuropathy; Right carotid artery- 30% blockage; - Immunization history:: Adult Immunizations up to date. - Social history:: Smoking status: Patient uses tobacco products, smokes one pack cigarettes per day. - Ebola Screening: : No symptoms or risks identified at this time. ROS: 13:13 Constitutional: Negative for fever, chills, and weight loss, ENT: Negative for injury, kb pain, and discharge, Neck: Negative for injury, pain, and swelling, Cardiovascular: Negative for chest pain, palpitations, and edema, Respiratory: Negative for shortness of breath, cough, wheezing, and pleuritic chest pain, Abdomen/GI: Negative for abdominal pain, nausea, vomiting, diarrhea, and constipation, Skin: Negative for injury, rash, and discoloration, Neuro: Negative for headache, weakness, numbness, tingling, and seizure. 13:13 MS/extremity: Positive for injury or acute deformity, pain, swelling, tenderness. Exam: 13:16 Constitutional: This is a well developed, well nourished patient who is awake, alert, kb and in no acute distress. Head/Face: Normocephalic, atraumatic. Neck: Trachea midline, no thyromegaly or masses palpated, and no cervical lymphadenopathy. Supple, full range of motion without nuchal rigidity, or vertebral point tenderness. No Meningismus. Chest/axilla: Normal chest wall appearance and motion. Nontender with no deformity. No lesions are appreciated. Cardiovascular: Regular rate and rhythm with a normal S1 and S2. No gallops, murmurs, or rubs. Normal PMI, no JVD. No pulse deficits. Respiratory: Lungs have equal breath sounds bilaterally, clear to auscultation and percussion. No rales, rhonchi or wheezes noted. No increased work of breathing, no retractions or nasal flaring. Abdomen/GI: Soft, non-tender, with normal bowel sounds. No distension or tympany. No guarding or rebound. No evidence of tenderness throughout. Back: No spinal tenderness. No costovertebral tenderness. Full range of motion. Skin: Warm, dry with normal turgor. Normal color with no rashes, no lesions, and no evidence of cellulitis. Neuro: Awake and alert, GCS 15, oriented to person, place, time, and situation. Cranial nerves II-XII grossly intact. Motor strength 5/5 in all extremities. Sensory grossly intact. Cerebellar exam normal. Normal gait. 13:16 Musculoskeletal/extremity: Extremities: grossly normal except: noted in the left wrist: decreased ROM, pain, swelling, tenderness, ROM: limited active range of motion due to pain, in the left wrist, Circulation is intact in all extremities. Sensation intact. Vital Signs: 12:20 BP 106 / 77; Pulse 94; Resp 16; Temp 98.4; Pulse Ox 100% on R/A; Weight 81.65 kg; la1 Height 5 ft. 8 in. (172.72 cm); 12:20 Body Mass Index 27.37 (81.65 kg, 172.72 cm) la1 MDM: 12:23 Patient medically screened. [facility] 13:13 Data reviewed: vital signs, nurses notes. Data interpreted: Pulse oximetry: on room air kb is 100 %. Interpretation: normal. Counseling: I had a detailed discussion with the patient and/or guardian regarding: the historical points, exam findings, and any diagnostic results supporting the discharge/admit diagnosis, radiology results, the need for outpatient follow up, a family practitioner, to return to the emergency department if symptoms worsen or persist or if there are any questions or concerns that arise at home. 04/27 12:29 Order name: Forearm Left XRAY 04/27 12:29 Order name: Hand Left 3 View XRAY 04/27 13:46 Order name: Wrist Splint; Complete Time: 13:51 kb Administered Medications: No medications were administered Disposition: 04/27/19 13:46 Discharged to Home. Impression: Pain in left wrist. - Condition is Stable. - Discharge Instructions: Wrist Pain, [id number], Wrist Sprain. - Prescriptions for Diclofenac Sodium 75 mg Oral Tablet, Delayed Release (E.C.) - take 1 tablet by ORAL route 2 times per day As needed; 30 tablet. - Medication Reconciliation Form, Thank You Letter, Antibiotic Education, Prescription Opioid Use form. - Follow up: Emergency Department; When: As needed; Reason: Worsening of condition. Follow up: Private Physician; When: 2 - 3 days; Reason: Recheck today's complaints, Continuance of care, Re-evaluation by your physician. Addendum: 04/29/2019 06:59 Co-signature as Attending Physician, Florentino Salgado MD I agree with the assessment and c prasad plan of care. Signatures: Dispatcher [employer] EDDai White, MANAGER CONSUMER INSIGHTS-C MANAGER CONSUMER INSIGHTS-Ckb Florentino Salgado MD MD cha Calderon, Audri, RN RN aa5 Brayden He RN RN la1 Corrections: (The following items were deleted from the chart) 04/27 13:58 13:46 04/27/2019 13:46 Discharged to Home. Impression: Pain in left wrist. Condition is aa5 Stable. Forms are Medication Reconciliation Form, Thank You Letter, Antibiotic Education, Prescription Opioid Use. Follow up: Emergency Department; When: As needed; Reason: Worsening of condition. Follow up: Private Physician; When: 2 - 3 days; Reason: Recheck today's complaints, Continuance of care, Re-evaluation by your physician. kb
--- NOTE | 2019-04-27 13:47 | ER ---
Nurse's Notes [facility] Name: Janell Presley Age: 59 yrs Sex: Female : 1960 Arrival Date: 04/27/2019 Time: 12:16 Bed 20 Private MD: Diagnosis: Pain in left wrist Presentation: 04/27 12:19 Presenting complaint: Patient states: I tripped and fell and hurt my left wrist. la1 Transition of care: patient was not received from another setting of care. Onset of symptoms was April 27, 2019. Risk Assessment: Do you want to hurt yourself or someone else? Patient reports no desire to harm self or others. Risk Assessment: Do you want to hurt yourself or someone else?. Initial Sepsis Screen: Does the patient meet any 2 criteria? No. Patient's initial sepsis screen is negative. Does the patient have a suspected source of infection? No. Patient's initial sepsis screen is negative. Care prior to arrival: None. 12:19 Method Of Arrival: Ambulatory la1 12:19 Acuity: [place] 4 la1 Triage Assessment: 12:40 Injury Description: Fall. aa5 Historical: - Allergies: 12:20 Vicodin; la1 12:20 Codeine; la1 - PMHx: 12:20 "Aortic valve leak"; Bipolar disorder; Depression; Diabetes - NIDDM; GERD; High la1 Cholesterol; Left carotid artery- 70% blockage; neuropathy; Right carotid artery- 30% blockage; - Immunization history:: Adult Immunizations up to date. - Social history:: Smoking status: Patient uses tobacco products, smokes one pack cigarettes per day. - Ebola Screening: : No symptoms or risks identified at this time. Screenin:35 Abuse screen: Denies threats or abuse. Nutritional screening: No deficits noted. em Tuberculosis screening: No symptoms or risk factors identified. Fall Risk None identified. Assessment: 12:40 General: Appears in no apparent distress. comfortable, Behavior is calm, cooperative. em Pain: Complains of pain in dorsal aspect of left forearm and left wrist Pain currently is 6 out of 10 on a pain scale. Neuro: Level of Consciousness is awake, alert, obeys commands, Oriented to person, place, time, situation, Appropriate for age. Cardiovascular: Capillary refill < 3 seconds Patient's skin is warm and dry. Respiratory: Airway is patent Respiratory effort is even, unlabored, Respiratory pattern is regular, symmetrical. Derm: Skin is intact, is healthy with good turgor, Skin is pink, warm \\T\\ dry. Musculoskeletal: Capillary refill < 3 seconds, Range of motion: intact in left wrist Swelling absent. 12:40 Reassessment: I agree with assessment completed by Milo Arias LVN . aa5 Vital Signs: 12:20 BP 106 / 77; Pulse 94; Resp 16; Temp 98.4; Pulse Ox 100% on R/A; Weight 81.65 kg; la1 Height 5 ft. 8 in. (172.72 cm); 12:20 Body Mass Index 27.37 (81.65 kg, 172.72 cm) la1 ED Course: 12:16 Patient arrived in ED. as 12:19 Triage completed. la1 12:21 Arm band placed on right wrist. la1 12:23 Florentino Salgado MD is Attending Physician. presley 12:24 Milo Arias LVN is Primary Nurse. em 12:25 Dai Santana FNP-C is [facility]. kb 12:35 Patient has correct armband on for positive identification. Bed in low position. Call em light in reach. 12:35 No provider procedures requiring assistance completed. Patient did not have IV access em during this emergency room visit. 12:57 Forearm Left XRAY In Process Unspecified. EDMS 12:57 Hand Left 3 View XRAY In Process Unspecified. EDMS 12:57 X-ray completed. Portable x-ray completed in exam room. Patient tolerated procedure je2 well. Administered Medications: No medications were administered Outcome: 13:46 Discharge ordered by . kb 13:58 Discharged to home ambulatory. aa5 13:58 Condition: good 13:58 Discharge instructions given to patient, Instructed on discharge instructions, follow up and referral plans. Demonstrated understanding of instructions, follow-up care. 13:58 Patient left the ED. aa5 Signatures: Dispatcher [employer] EDDai White FNP-C FNP-Florentino Pinedo MD MD cha Munoz, Edgar, LVN LVN em Saba Presley Audri, RN RN aa5 Brayden He RN RN la1 Celio Brower je2
[2019-04-27 14:03] VITALS: BP 106/77; TEMP 98.4; O2SAT 100
--- NOTE | 2019-04-27 14:26 | RAD REPORT ---
EXAM DESCRIPTION: RAD - Forearm Left - 04/27/2019 12:56 pm CLINICAL HISTORY: Fall, left arm and wrist pain COMPARISON: None. FINDINGS: No fracture is identified. There is no dislocation or periosteal reaction noted. Degenerat laure changes are present at the trapezium first metacarpal articulation. No foreign body or other soft tissue abnormality. IMPRESSION: No fracture or acute findings to the left forearm or wrist joint. Advanced for age degenerative change at the trapezium first metacarpal articulation.
--- NOTE | 2019-04-27 14:29 | RAD REPORT ---
EXAM DESCRIPTION: RAD - Hand Left 3 View - 04/27/2019 12:56 pm CLINICAL HISTORY: Trip and fall, left hand pain bold COMPARISON: None. FINDINGS: Distal radius and ulna are intact. Patient has advanced for age degenerative change at the trapezial first metacarpal articulation. There is joint space narrowing, spurring and partial sublux ation of the first metacarpal. Small bone density on the radial side of this joint is probably relate d to degenerative change. A small avulsed fracture is not entirely excluded. Correlation is needed wi th any acute pain symptoms localizing to this joint. Otherwise no possible fracture or acute bone process seen. Patient has mild IP joint degenerative presley nge with joint space narrowing. No spurring or erosive change. No pathologic bone process. No foreign body or other soft tissue abnormality. IMPRESSION: Advanced for age degenerative change at the trapezial first metacarpal articulation. Small bone density on the radial side of this joint could potentially be a small fracture though this is more likely degenerative. Correlation is needed with any localizing symptoms. Hand and wrist are otherwise clear of acute or significant finding.
== END 2019-04-27 13:58 | disposition home or self-care (01) ==
LOC: ER 12:14
DX: M25.532 Pain in left wrist (principal); W01.0XXA Fall on same level from slipping, tripping and stumbling without subsequent striking against object, initial encounter; Y93.9 Activity, unspecified; Y92.9 Unspecified place or not applicable; Z88.6 Allergy status to analgesic agent; F17.210 Nicotine dependence, cigarettes, uncomplicated
CPT/HCPCS: 99283

== ENCOUNTER 2019-08-02 11:33 | Observation (INO) | payer OTHER ==
--- OUTSIDE RECORDS SUMMARY | 2019-08-02 11:35 | XMS REPORT ---
:1960 [facility] Address [address] [place] [address] Dr. Early [address] [place] [id number] Care Team Providers Name Role Phone Unavailable [...] mammographic images were evaluated by either a [employer] M-Vu or a [employer] ImageChecker CAD (computer aided detection system). Comparison is made to exams dated 08/11/2016 mammogram - [facility], 12/03/2014 mammogram, and [facility]. There are scattered fibroglandular tissues in both breasts. No suspicious mass, architectural distortion, malignant type calcification, or lymph node abnormality detected. Breast architecture is stable compared to prior exams.IMPRESSION: NEGATIVEThere is no mammographic evidence of malignancy. Resume annual screening mammography in one year. Yoseph bethea/roney:07/11/2018 15:56:42 Adjunct Physics Instructor: Nati Lilly MM, [facility] sent: BIRADS 1-2 Normal Mammogram BI-RADS: 1 Negative
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
[2019-08-02] MEDS ORDERED: NITROGLYCERIN 0.4 MG/TAB SL ONE (12:13)
[2019-08-02 12:17] LABS: Absolute Lymphocytes (CBC) 2.8 K/uL (0.7-4.9); Basophils % 1.4 % (0-1.3); Lymphocytes % 26.6 % (15.3-44.8); MPV 7.3 fL (7.6-11.3); RBC Red Blood Cell Count 5.42 M/uL (3.86-4.86)
[2019-08-02 13:22] LABS: ALT/SGPT 37 U/L (12-78); AST/SGOT 20 U/L (15-37); Alkaline Phosphatase 85 U/L (45-117); BUN Blood Urea Nitrogen 20 mg/dL (7-18); Bicarbonate 28 mmol/L (21-32); Bilirubin Direct 0.1 mg/dL (0-0.2); Bilirubin Total 0.5 mg/dL (0.2-1.0); Glucose Level 77 mg/dL (74-106); Lipase 106 U/L (73-393); NT PRO-BNP 110 pg/mL (<125); Potassium 4.3 mmol/L (3.5-5.1); Sodium Level 141 mmol/L (136-145); Troponin (Emerg Dept Use Only) < 0.02 ng/mL (0.0-0.045)
--- NOTE | 2019-08-02 13:53 | ER ---
Nurse's Notes [facility] Name: Janell Presley Age: 59 yrs Sex: Female : 1960 Arrival Date: 08/02/2019 Time: 11:34 Bed 5 Private MD: Diagnosis: Chest pain, unspecified Presentation: 08/02 11:51 Presenting complaint: Patient states: midsternal chest pain started around 11am feels iw like pressure through her back. Transition of care: patient was not received from another setting of care. Onset of symptoms was August 02, 2019. Risk Assessment: Do you want to hurt yourself or someone else?. Initial Sepsis Screen: Does the patient meet any 2 criteria? No. Patient's initial sepsis screen is negative. Does the patient have a suspected source of infection? No. Patient's initial sepsis screen is negative. Care prior to arrival: None. 11:51 Method Of Arrival: Ambulatory iw 11:51 Acuity: [place] 2 iw Triage Assessment: 12:00 General: Appears in no apparent distress. comfortable, Behavior is cooperative, bp appropriate for age, anxious. Pain: Complains of pain in chest. EENT: No deficits noted. Neuro: No deficits noted. Cardiovascular: Rhythm is sinus rhythm. Respiratory: No deficits noted. GI: No signs and/or symptoms were reported involving the gastrointestinal system. : No signs and/or symptoms were reported regarding the genitourinary system. Derm: No deficits noted. Musculoskeletal: No deficits noted. Historical: - Allergies: 11:55 Codeine; iw 11:55 Vicodin; iw - Home Meds: 11:55 atorvastatin Oral once daily [Active]; citalopram 20 mg tab 1 tab once daily [Active]; iw endomethasone [Active]; gabapentin 900 mg Oral tab 1 tab 3 times per day [Active]; glimepiride 4 mg Oral tab 1 tab once daily [Active]; Lamictal 100 mg Oral tab 1 tab 2 times per day [Active]; lisinopril Oral [Active]; Lyrica Oral 300 mg 3 times per day [Active]; metformin 500 mg Oral tab 1 tab 2 times per day [Active]; omeprazole 20 mg Oral cpDR 1 cap 2 times per day [Active]; Trazodone Oral nightly [Active]; Zantac 150 mg Oral tab once daily [Active]; - PMHx: 11:55 "Aortic valve leak"; Bipolar disorder; Depression; Diabetes - NIDDM; GERD; High iw Cholesterol; Left carotid artery- 70% blockage; neuropathy; Right carotid artery- 30% blockage; - Immunization history:: Adult Immunizations up to date. - Coronavirus screen:: The patient has NOT traveled to [place] in the past 14 days. The patient has NOT had contact with known/suspected case of Coronavirus?. - Family history:: not pertinent. - Social history:: Smoking status: Patient reports the use of cigarette tobacco products, smokes one-half pack cigarettes per day. - Hospitalizations: : No recent hospitalization is reported. - Ebola Screening: : No symptoms or risks identified at this time. Screenin:55 Abuse screen: Denies threats or abuse. Denies injuries from another. Nutritional sv screening: No deficits noted. Tuberculosis screening: No symptoms or risk factors identified. Fall Risk None identified. Assessment: 12:00 General: SEE TRIAGE NOTE. bp 12:00 Pain: Pain radiates to back Pain began 1 hour ago. bp 12:25 General: Appears in no apparent distress. comfortable, well groomed, well developed, sv Behavior is calm, cooperative, appropriate for age. Pain: Denies pain. Neuro: Level of Consciousness is awake, alert, obeys commands, Oriented to person, place, time, situation, Moves all extremities. Full function Gait is steady, Speech is normal. Cardiovascular: Patient's skin is warm and dry. Pulses are palpable in right radial artery and left radial artery Rhythm is sinus rhythm Chest pain is denied. Respiratory: Airway is patent Respiratory effort is even, unlabored, Respiratory pattern is regular, symmetrical. Derm: Skin is intact, Skin is pink, warm \\T\\ dry. Musculoskeletal: Range of motion: intact in all extremities. 13:30 Reassessment: LABS RECOLLECTED. VS STABLE ON MONITOR. NO S/S ACUTE DISTRESS. bp 14:00 Reassessment: ADMIT INITIATED. bp 14:46 Reassessment: ADMIT COMPLETED. PT ALANA RM 429, DX WITH CHEST PAIN. bp Vital Signs: 11:55 BP 112 / 51; Pulse 73; Resp 16 S; Temp 98.0; Pulse Ox 99% on R/A; Weight 83.91 kg; iw Height 5 ft. 8 in. (172.72 cm); Pain 0/10; 13:00 BP 109 / 96; Pulse 94; Resp 24; Pulse Ox 96% ; ah 14:56 BP 91 / 76; Pulse 78; Resp 13; Temp 98; Pulse Ox 99% ; bp 11:55 Body Mass Index 28.13 (83.91 kg, 172.72 cm) ED Course: 11:34 Patient arrived in ED. as 11:41 Scott Funes MD is Attending Physician. rn 11:53 Triage completed. iw 11:54 Toma Sanabria RN is Primary Nurse. sv 11:54 Arm band placed on. sv 11:55 Patient has correct armband on for positive identification. Bed in low position. Call sv light in reach. steeler on. Pulse ox on. NIBP on. 12:30 Inserted saline lock: 20 gauge in right antecubital area, using aseptic technique. sv Blood collected. Flushed right antecubital with 5 ml normal saline. 13:00 X-ray(s) taken. sv 13:10 Lab(s) recollected, by me, sent to lab. sv 13:14 XRAY Chest (1 view) Sent. sv 13:35 Lipase Sent. sv 13:36 Basic Metabolic Panel Sent. sv 13:36 CBC with Diff Sent. sv 13:36 LFT's Sent. sv 13:36 NT PRO-BNP Sent. sv 13:36 Troponin (emerg Dept Use Only) Sent. sv 13:52 Tristian Burgos MD is Hospitalizing Provider. rn 15:02 No provider procedures requiring assistance completed. Patient admitted, IV remains in bp place. Patient maintains SpO2 saturation greater than 95% on room air. Administered Medications: 13:35 Not Given (Physician Discretion): Nitroglycerin 0.4 mg Sublingual once sv Outcome: 13:52 Decision to Hospitalize by Provider. rn 15:02 Admitted to Tele accompanied by tech, via wheelchair, room 429, with chart, Report bp called to KHRIS DELUNA 15:02 Condition: stable 15:02 Instructed on the need for admit. 15:14 Patient left the ED. bp Signatures: Toma Sanabria RN RN sv Martinez, Amelia as Williams, Irene, RN RN Scott Funes MD MD rn Peltier, Brian, RN RN bp Harris, Amy, RN RN Corrections: (The following items were deleted from the chart) 12:07 11:55 BP 112 / 51; Pulse 73bpm; Resp 16bpm; Spontaneous; iw iw
--- NOTE | 2019-08-02 13:53 | EDPHYS ---
Physician Documentation [facility] Name: Janell Presley Age: 59 yrs Sex: Female : 1960 Arrival Date: 08/02/2019 Time: 11:34 Bed 5 Private MD: ED Physician Scott Funes HPI: 08/02 12:02 This 59 yrs old Female presents to ER via Ambulatory with complaints of Chest rn Pain. 12:02 The patient or guardian reports chest pain that is located primarily in the substernal rn area. Onset: 40 minute(s) ago. The pain radiates to right jaw. Associated signs and symptoms: Pertinent positives: shortness of breath, Pertinent negatives: abdominal pain, cough, diaphoresis, near syncope, palpitations, recent travel, vomiting. The chest pain is described as squeezing. Duration: The patient or guardian reports a single episode, that is still ongoing. Modifying factors: The symptoms are alleviated by nothing. the symptoms are aggravated by nothing. Severity of pain: At its worst the pain was moderate in the emergency department the pain has improved. The patient has experienced similar episodes in the past. Reports chest pain, central, radiates to right jaw, now lasting 40 min, slowly improving after taking her meds and aspirin. No fever/cough/trauma. + assoc with sob. No abd pain/vomiting.. Historical: - Allergies: 11:55 Codeine; iw 11:55 Vicodin; iw - Home Meds: 11:55 atorvastatin Oral once daily [Active]; citalopram 20 mg tab 1 tab once daily [Active]; iw endomethasone [Active]; gabapentin 900 mg Oral tab 1 tab 3 times per day [Active]; glimepiride 4 mg Oral tab 1 tab once daily [Active]; Lamictal 100 mg Oral tab 1 tab 2 times per day [Active]; lisinopril Oral [Active]; Lyrica Oral 300 mg 3 times per day [Active]; metformin 500 mg Oral tab 1 tab 2 times per day [Active]; omeprazole 20 mg Oral cpDR 1 cap 2 times per day [Active]; Trazodone Oral nightly [Active]; Zantac 150 mg Oral tab once daily [Active]; - PMHx: 11:55 "Aortic valve leak"; Bipolar disorder; Depression; Diabetes - NIDDM; GERD; High iw Cholesterol; Left carotid artery- 70% blockage; neuropathy; Right carotid artery- 30% blockage; - Immunization history:: Adult Immunizations up to date. - Coronavirus screen:: The patient has NOT traveled to [place] in the past 14 days. The patient has NOT had contact with known/suspected case of Coronavirus?. - Family history:: not pertinent. - Social history:: Smoking status: Patient reports the use of cigarette tobacco products, smokes one-half pack cigarettes per day. - Hospitalizations: : No recent hospitalization is reported. - Ebola Screening: : No symptoms or risks identified at this time. ROS: 12:02 Constitutional: Negative for fever, chills, and weight loss, Eyes: Negative for injury, rn pain, redness, and discharge, Neck: Negative for injury, pain, and swelling, Cardiovascular: Negative for palpitations, and edema, Respiratory: Negative for cough, wheezing, and pleuritic chest pain, Abdomen/GI: Negative for abdominal pain, nausea, vomiting, diarrhea, and constipation, MS/Extremity: Negative for injury and deformity, Skin: Negative for injury, rash, and discoloration, Neuro: Negative for headache, weakness, numbness, tingling, and seizure. Exam: 12:02 Constitutional: This is a well developed, well nourished patient who is awake, alert, rn and in no acute distress. Ambulatory to room. Head/Face: Normocephalic, atraumatic. Eyes: Pupils equal round and reactive to light, extra-ocular motions intact. Lids and lashes normal. Conjunctiva and sclera are non-icteric and not injected. Cornea within normal limits. Periorbital areas with no swelling, redness, or edema. Cardiovascular: Regular rate and rhythm. No pulse deficits. Respiratory: No increased work of breathing, no retractions or nasal flaring. Abdomen/GI: soft, non-tender MS/ Extremity: Pulses equal, no cyanosis. Neurovascular intact. Full, normal range of motion. Equal circumference. Neuro: Awake and alert, GCS 15, oriented to person, place, time, and situation. Motor strength 5/5 in all extremities. Cerebellar exam normal. Normal gait. Vital Signs: 11:55 BP 112 / 51; Pulse 73; Resp 16 S; Temp 98.0; Pulse Ox 99% on R/A; Weight 83.91 kg; iw Height 5 ft. 8 in. (172.72 cm); Pain 0/10; 13:00 BP 109 / 96; Pulse 94; Resp 24; Pulse Ox 96% ; ah 14:56 BP 91 / 76; Pulse 78; Resp 13; Temp 98; Pulse Ox 99% ; bp 11:55 Body Mass Index 28.13 (83.91 kg, 172.72 cm) iw MDM: 11:41 Patient medically screened. rn 13:51 Differential diagnosis: acute myocardial infarction, coronary artery disease chest wall rn pain, Cholelithiasis costochondritis, esophagitis, gastritis, gastroesophageal reflux disease (GERD), pericarditis, pleurisy, pneumonia, pneumothorax, stable angina, unstable angina. The patient was not given aspirin in the Emergency Department. Patient reports taking aspirin within the past 24 hours. Data reviewed: vital signs, nurses notes, and as a result, I will admit patient. Counseling: I had a detailed discussion with the patient and/or guardian regarding: the historical points, exam findings, and any diagnostic results supporting the discharge/admit diagnosis, lab results, radiology results, the need for further work-up and treatment in the hospital. Response to treatment: the patient's condition has returned to base line, the patient is now symptom free, and as a result, I will admit patient. Admission orders: after a detailed discussion of the patient's condition and case, the admit orders are written by me. ED course: Pt with multiple risk factors, neg trop and ecg, will admit for cardiology eval and stress test. . 08/02 11:55 Order name: Basic Metabolic Panel rn 08/02 11:55 Order name: CBC with Diff rn 08/02 11:55 Order name: LFT's rn 08/02 11:55 Order name: NT PRO-BNP rn 08/02 11:55 Order name: Troponin (emerg Dept Use Only) rn 08/02 11:55 Order name: Lipase rn 08/02 11:55 Order name: XRAY Chest (1 view) rn 08/02 12:22 Order name: CBC with Automated Diff; Complete Time: 13:27 [facility]CO 08/02 13:23 Order name: Basic Metabolic Panel; Complete Time: 13:27 [facility]CO 08/02 13:23 Order name: Liver (Hepatic) Function; Complete Time: 13:27 [facility] 08/02 13:23 Order name: Troponin (Emerg Dept Use Only); Complete Time: 13:27 [facility] 08/02 13:23 Order name: NT PRO-BNP; Complete Time: 13:27 [facility] 08/02 13:23 Order name: Lipase; Complete Time: 13:27 [facility] 08/02 14:23 Order name: RAD [facility]CO 08/02 11:55 Order name: EKG; Complete Time: 11:56 rn 08/02 11:55 Order name: Cardiac monitoring; Complete Time: 13:14 rn 08/02 11:55 Order name: EKG - Nurse/Tech; Complete Time: 13:14 rn 08/02 11:55 Order name: IV Saline Lock; Complete Time: 13:14 rn 08/02 11:55 Order name: Labs collected and sent; Complete Time: 13:14 rn 08/02 11:55 Order name: O2 Per Protocol; Complete Time: 13:14 rn 08/02 11:55 Order name: O2 Sat Monitoring; Complete Time: 13: rn 08/02 12:36 Order name: Labs - recollect needed; Complete Time: 13:22 ms Administered Medications: 13:35 Not Given (Physician Discretion): Nitroglycerin 0.4 mg Sublingual once sv Disposition: 08/02/19 13:52 Hospitalization ordered by Tristian Burgos for Observation. Preliminary diagnosis is Chest pain, unspecified. - Bed requested for Telemetry/MedSurg (observation). - Status is Observation. bp - Condition is Stable. - Problem is new. - Symptoms have improved. Signatures: Dispatcher [employer] EDCO Marium Chao, RN Urmila Zuniga ms, Roman, MD MD rn Peltier, Brian, RN RN bp Verde, Stephanie RN sv Corrections: (The following items were deleted from the chart) 14:32 13:52 Hospitalization Ordered by Tristian Burgos MD for Observation. Preliminary diagnosis ms is Chest pain, unspecified. Bed requested for Telemetry/MedSurg (observation). Status is Observation. Condition is Stable. Problem is new. Symptoms have improved. rn 15:14 14:32 08/02/2019 13:52 Hospitalization Ordered by Tristian Burgos MD for Observation. bp Preliminary diagnosis is Chest pain, unspecified. Bed requested for Telemetry/MedSurg (observation). Status is Observation. Condition is Stable. Problem is new. Symptoms have improved. ms
--- NOTE | 2019-08-02 13:54 | RAD REPORT ---
EXAM DESCRIPTION: RAD - Chest Single View - 08/02/2019 1:15 pm CLINICAL HISTORY: CHEST PAIN COMPARISON: Chest Pa And Lat (2 Views) dated 03/18/2019 TECHNIQUE: AP portable chest image was obtained 08/02/2019 1:15 pm . FINDINGS: Lungs are clear. Lung markings match comparison. Heart and vasculature are normal. No edwina urable pleural effusion and no pneumothorax. No acute bony abnormality seen. No acute aortic findings suspected. IMPRESSION: No acute cardiopulmonary process.
[2019-08-02] MEDS ORDERED: MORPHINE 4 MG/ML SYR IV PRN (15:45)
[2019-08-02] MEDS ORDERED: NITROGLYCERIN 0.4 MG/TAB SL PRN (15:45)
--- NOTE | 2019-08-02 16:18 | P.HP ---
Certification for Inpatient Patient admitted to: Observation With expected LOS: <2 Midnights Patient will require the following post-hospital care: None Practitioner: I am a practitioner with admitting privileges, knowledge of patient current condition, hospital course, and medical plan of care. Services: Services provided to patient in accordance with Admission requirements found in Title 42 Section 412.3 of the Code of Federal Regulations Patient History Date of Service: 08/02/19 Primary Care Provider: Dr. Main Reason for admission: Chest pain History of Present Illness: Patient is a 59-year-old female with past medical history of diabetes non- insulin-requiring hyperlipidemia carotid artery disease who is a heavy smoker comes in with sudden onset of substernal chest pain at rest which is pressure like sharp radiating to the back. Not associated with any nausea vomiting diaphoresis or palpitations. No syncope. Patient denies any fevers chills diarrhea. No cough or sputum production. Should be noted patient has chronic back pain and shoulder pain however states this is different from her previous. 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 Patient's pain lasted approximately an hr and started to ease up. Patient came into the ER for further evaluation. In the ER her workup revealed negative troponin level and no changes on EKG. Chest x-ray was negative. Patient was referred for admission. When seen in the ER she was awake alert oriented x3 in minimal distress Allergies acetaminophen [From Vicodin] Allergy (Unverified 09/27/14 11:01) Unknown hydrocodone bitartrate [From Vicodin] Allergy (Unverified 09/27/14 11:01) Unknown Home medications list reviewed: Yes Home Medications: Atorvastatin Calcium [Lipitor*] 20 mg PO DAILY 07/31/15 Citalopram [Celexa*] 20 mg PO DAILY 07/31/15 Gabapentin [Neurontin*] 300 mg PO TID 07/31/15 Lamotrigine [Lamictal] 50 mg PO BID 07/31/15 Metformin HCl [Glucophage] 1,000 mg PO BID 07/31/15 Omeprazole [Prilosec] 20 mg PO BID 07/31/15 Trazodone [Desyrel*] 100 mg PO BEDTIME PRN 07/31/15 - Past Medical/Surgical History Diabetic: Yes -: Bipolar -: DM -: RLS -: neuropathy -: high cholesterol -: closed head injury 12 years ago -: Carotid artery disease -: diverticulitis -: back sx with chronic back pain -: COPD -: Rheumatoid arthritis -: back sx -: left ovary removed - Family History Father -: Heart disease (bypass surgery in his 60s) - Social History Smoking Status: Heavy Tobacco smoker (>10 cigarettes/day) Smoking therapy provided: Yes Alcohol use: No CD- Drugs: No Caffeine use: Yes Place of Residence: Home Review of Systems 10-point ROS is otherwise unremarkable Cardiovascular: As per HPI Musculoskeletal: Shoulder Pain, Back Pain Physical Examination - Vital Signs Temperature: 98 F Blood Pressure: 91/76 Pulse: 78 Respirations: 13 - Physical Exam General: Alert, In no apparent distress, Oriented x3, Mild distress HEENT: Atraumatic, PERRLA, Mucous membr. moist/pink, EOMI, Sclerae nonicteric Neck: Supple, 2+ carotid pulse no bruit, JVD not distended Respiratory: Clear to auscultation bilaterally, Normal air movement Cardiovascular: No edema, Normal pulses, Regular rate/rhythm, Normal S1 S2 Gastrointestinal: Normal bowel sounds, Soft and benign, Non-distended, No tenderness Musculoskeletal: No clubbing, No tenderness Integumentary: No rashes, No erythema Neurological: Normal speech, Normal strength at 5/5 x4 extr, Normal tone, Cranial nerves 3-12 intact, Normal affect - Studies Laboratory Data (last 24 hrs) 08/02/19 12:41: Sodium 141, Potassium 4.3, BUN 20 H, Creatinine 0.62, Glucose 77 , Total Bilirubin 0.5, AST 20, ALT 37, Alkaline Phosphatase 85, Lipase 106 08/02/19 12:00: WBC 10.7, Hgb 15.0, Hct 45.0, Plt Count 405 Imagings Data: EXAM DESCRIPTION: RAD - Chest Single View - 08/02/2019 1:15 pm CLINICAL HISTORY: CHEST PAIN COMPARISON: Chest Pa And Lat (2 Views) dated 03/18/2019 TECHNIQUE: AP portable chest image was obtained 08/02/2019 1:15 pm . FINDINGS: Lungs are clear. Lung markings match comparison. Heart and vasculature are normal. No measurable pleural effusion and no pneumothorax. No acute bony abnormality seen. No acute aortic findings suspected. IMPRESSION: No acute cardiopulmonary process. Assessment and Plan - Plan Assessment and plan 1. Chest pain rule out ACS initial cardiac enzymes and EKG are negative. Patient has high risk factors including smoking history diabetes hyperlipidemia strong family history and coronary disease. Will start on chest pain guidelines. Cardiology consultation. Will obtain CT angio to rule out aortic dissection. Obtain echocardiogram 2. Diabetes mellitus type 2 [id number] with hyperglycemia. Continue on sliding scale insulin. Monitor blood glucose levels 3. Mixed hyperlipidemia. Continue statin 4. Carotid artery disease. Continue outpatient survey with annual carotid Doppler 5. COPD chronic bronchitis. Continue albuterol p.r.n. 6. Chronic back pain and shoulder pain. On chronic narcotics. Continue home medications with oxycodone. 7. Neuropathy 8. Bipolar disorder. Continue home medication 9. Restless leg syndrome Discharge Plan: Home Plan to discharge in: 24 Hours - Advance Directives Does patient have a Living Will: Yes Does patient have a Durable POA for Healthcare: Yes - Code Status/Comfort Care Code Status Assessed: Yes
--- NOTE | 2019-08-02 16:56 | RAD REPORT ---
EXAM DESCRIPTION: CT - Angio Aorta For Dissection - 08/02/2019 4:36 pm CLINICAL HISTORY: Chest pain radiating to back COMPARISON: None. TECHNIQUE: Dynamically enhanced 3 mm thick images of the chest, abdomen, and upper pelvis were obtai jeffry during administration of approximately 150mL Isovue 370 IV contrast. Sagittal and coronal reconst ruction images were generated using MIP and reviewed. Exam utilizes a protocol to evaluate entire cou rse of the aorta. All CT scans are performed using dose optimization technique as appropriate and may include automated exposure control or mA/KV adjustment according to patient size. FINDINGS: Aorta is normal in diameter with no dissection or other acute aortic findings. Reconstruct ion images show no significant findings. Great vessels off the aortic arch show no significant findin g. Infrarenal aortic calcifications are present without central displacement. Iliac artery calcificat ions also present. Pulmonary arteries are normal as well. No cardiomegaly, pericardial thickening or pericardial effusio n. No acute infiltrate in the lung parenchyma. A 7 millimeter nodule is present in the posterior right u pper lobe at the aortic arch level. No other lung parenchymal mass or nodule. No pleural thickening, pleural effusion or pneumothorax. No abnormal mediastinal or hilar mass or lymphadenopathy seen. No chest wall mass or abnormal axillar y lymphadenopathy. Celiac, SMA and renal arteries show no suspicious findings. Solid abdominal viscera and bowel show no acute findings. Liver is probably fatty infiltrated. No mass or abnormal lymphadenopathy. No free a ir, free fluid or inflammatory stranding. No urinary bladder abnormality. No acute uterine or ovaria n abnormality. Degenerative and postsurgical changes are present in the skeleton. No acute or destructive finding. IMPRESSION: No aneurysm, dissection or acute findings of the aortoiliac vasculature. A 7 millimeter slightly spiculated nodule is present in the right upper lobe. Fleischner criteria rec ommendation is repeat CT chest study in 6-12 months. Remainder the study is without acute finding. Nonacute findings are detailed in the body of the repor t.
[2019-08-02] MEDS: INSULIN -REGULAR HUMAN 50 UNIT/0.5 ML ML SQ SCH ×2 (17:13→20:33)
[2019-08-02] MEDS ORDERED: ACETAMINOPHEN PO PRN (17:51)
[2019-08-02] MEDS ORDERED: OXYCODONE HCL PO PRN (17:51)
[2019-08-02 18:35] VITALS: BMI 28.1
[2019-08-02] MEDS ORDERED: LIPASE PO SCH ×2 (20:00→21:00)
[2019-08-02] MEDS ORDERED: AMYLASE PO SCH ×2 (20:00→21:00)
[2019-08-02] MEDS ORDERED: PROTEASE PO SCH ×2 (20:00→21:00)
[2019-08-02] MEDS: METOPROLOL TAR 50 MG TAB PO SCH (20:32)
[2019-08-02] MEDS ORDERED: HOME MED 1 EA UNK (Trazodone [Desyrel*] 150 MG) PO SCH (21:00)
[2019-08-02] MEDS ORDERED: HOME MED 1 EA UNK (Montelukast [Singulair*] 10 MG) PO SCH (21:00)
[2019-08-02] MEDS ORDERED: HOME MED 1 EA UNK (Atorvastatin Calcium [Lipitor] 80 MG) PO SCH (21:00)
[2019-08-02] MEDS ORDERED: HOME MED 1 EA UNK (Glimepiride [Amaryl] 4 MG) PO SCH (21:00)
[2019-08-02] MEDS ORDERED: ATORVASTATIN 20 MG TAB PO SCH (21:00)
[2019-08-02] MEDS ORDERED: LAMOTRIGINE PO SCH (21:00)
[2019-08-02] MEDS ORDERED: ICOSAPENT ETHYL PO SCH (21:00)
[2019-08-02] MEDS ORDERED: ATORVASTATIN 80 MG TAB PO SCH (21:00)
[2019-08-02] MEDS ORDERED: BUSPIRONE HCL 5 MG PO SCH (21:00)
[2019-08-02] MEDS ORDERED: HOME MED 1 EA UNK (Gabapentin [Gabapentin] 600 MG) PO SCH (21:00)
[2019-08-03] MEDS ORDERED: HOME MED 1 EA UNK (Pantoprazole [Protonix Tab*] 40 MG) PO SCH (06:00)
[2019-08-03 06:31] VITALS: BP 110/60
[2019-08-03 06:38] LABS: Absolute Lymphocytes (CBC) 3.9 K/uL (0.7-4.9); Hematocrit 40.7 % (36.0-45.0); Lymphocytes % 40.6 % (15.3-44.8); MPV 7.5 fL (7.6-11.3)
[2019-08-03 07:07] LABS: Potassium 4.3 mmol/L (3.5-5.1)
--- NOTE | 2019-08-03 07:47 | EKG ---
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
[2019-08-03] MEDS ORDERED: HOME MED 1 EA UNK (Gabapentin [Gabapentin] 800 MG) PO SCH (08:00)
[2019-08-03] MEDS ORDERED: PNEUMOCOCCAL VACCINE 0.5 ML IMVAC ONE (08:00)
[2019-08-03] MEDS: INSULIN -REGULAR HUMAN 50 UNIT/0.5 ML ML SQ SCH (08:07)
[2019-08-03] MEDS: METOPROLOL TAR 50 MG TAB PO SCH (08:08)
[2019-08-03] MEDS ORDERED: CITALOPRAM PO SCH (09:00)
[2019-08-03] MEDS ORDERED: HOME MED 1 EA UNK (Lisinopril [Zestril] 2.5 MG) PO SCH (09:00)
[2019-08-03] MEDS ORDERED: ENOXAPARIN 40 MG/0.4 ML SQ SCH (09:00)
[2019-08-03] MEDS ORDERED: lisinopriL 10 MG TAB PO SCH (09:00)
[2019-08-03] MEDS ORDERED: ASPIRIN EC 81 MG TAB PO SCH (09:00)
[2019-08-03 09:03] VITALS: TEMP 97.7
[2019-08-03 09:31] VITALS: O2SAT 91
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
--- NOTE | 2019-08-03 13:24 | DS ---
Date of Discharge: 08/03/2019 Patient Observer: Dr. Daley, Cardiology. Procedures: None. Discharge Diagnoses: 1.Chest pain, acute coronary syndrome ruled out. 2.Diabetes mellitus type 2, nga-ovwgoyc-ywfdfawea with hyperglycemia, stable. 3.Mixed hyperlipidemia, on statin. 4.Carotid artery disease, 70% blockage on the left. We will continue with outpatient monitoring wit h Doppler every 6-12 months. 5.Chronic obstructive pulmonary disease, chronic bronchitis, stable. 6.Chronic back pain and shoulder pain, on narcotics with oxycodone. 7.Neuropathy. 8.Bipolar disorder, stable. 9.Restless legs syndrome, stable. 10.Pulmonary nodule 7 mm in the posterior right upper lobe. Needs repeat CT scan in 6-12 months. 11.Nicotine dependence, cigarette smoking. Hospital Course: Patient is a 59-year-old female with multiple comorbid conditions including diabete s, hyperlipidemia, carotid artery disease, heavy smoker, comes in with chest pain. The patient was a dmitted for chest pain, rule out ACS. Cardiac enzymes were negative. EKG did not show any acute presley nges. Due to her symptoms and chest pain radiating to the back, CT aortic dissection was done, which did not show any acute aortic dissection, did show a 7 mm right upper lobe pulmonary nodule, which n eeds to be followed up with repeat CT scan in 6-12 months. Patient can follow up with her PCP to yohan perera. She understands this may be cancerous due to her heavy history of smoking. Otherwi se, the patient did well. Her chest pain improved. She was continued on oxycodone for her chronic b ack pain. Her triglyceride levels were elevated. She was on high-dose statin and Vascepa. She was counseled regarding her diet. Overall, patient did well. She will need to follow up with Dr. Robbin mitchell for outpatient cardiac catheterization. Return to ER for worsening condition. Follow Up: With primary care physician in 2-3 days. Hold metformin for 48 hours post catheterization. Diet: Heart healthy. Activity: As tolerated. Physical Examination: General: Awake, alert, oriented x3, not in any acute distress. CV: S1, S2. No murmurs. Respiratory: Moving air well bilaterally. Abdomen: Soft, nontender, nondistended. Positive bowel sounds. Extremities: No clubbing, cyanosis, or edema. Neurologic: Nonfocal. SA/MODL Voice ID: [id number] Report ID: [id number]
== END 2019-08-03 10:50 | disposition home or self-care (01) ==
LOC: ER 11:33 → ERHOLD 14:12 → INTOOBSV 14:12 → 4TH 15:03
PROVIDERS: ADMIT Family Medicine; ATTEND Family Medicine
DX: R07.9 Chest pain, unspecified (principal); E11.9 Type 2 diabetes mellitus without complications; E78.5 Hyperlipidemia, unspecified; F31.9 Bipolar disorder, unspecified; E11.65 Type 2 diabetes mellitus with hyperglycemia; E78.2 Mixed hyperlipidemia; I65.29 Occlusion and stenosis of unspecified carotid artery; J44.9 Chronic obstructive pulmonary disease, unspecified; G62.9 Polyneuropathy, unspecified; G25.81 Restless legs syndrome; R91.1 Solitary pulmonary nodule; Z23 Encounter for immunization; F17.210 Nicotine dependence, cigarettes, uncomplicated
CPT/HCPCS: 93005; 85025 ×2; 80048 ×2; 36415; 80061; 82947 ×3; 80076; 84484 ×3; 83690; 83880; 71275; 74175; 71045; 90471; 90670; 94760 ×2; 99285; Q9967; J1650; G0378 ×3

== ENCOUNTER 2020-03-06 19:53 | Emergency (ER) | payer OTHER ==
--- OUTSIDE RECORDS SUMMARY | 2020-03-06 19:55 | XMS REPORT | Continuity of Care Document ---
:1960 Author Organization [facility] t Address [address] [place] [address] Care Team Providers Name Role Phone Alexx Houston Attending Clinician Doctor Unassigned, Name Attending Clinician Unavailable Problems This patient has no known problems. Allergies, Adverse Reactions, Alerts This patient has no known allergies or adverse reactions. Medications This patient has no known medications. Procedures This patient has no known procedures. Encounters Start End Encounter Admission Attending Care Care Encounter Source Date/Time Date/Time Type Type Clinicians Facility Department ID 2020-02-24 2020-02-24 Office CLAUS Robertson [id number] 10:21:49 10:47:44 Visit [facility] [id number] Surgical [id number] Special [id number] 198 [place]rill 2020-02-20 2020-02-20 Orders Doctor ZO [id number] 00:00:00 00:00:00 Only UnassignedFABIENNE [id number] [place] [id number] 2020-02-09 2020-02-09 Orders Doctor ZO [id number] 00:00:00 00:00:00 Only UnassignedFABIENNE [id number] [place] [id number] Results Test Description Test Time Test Comments Results Result Sour e Comments SCR MAMM 2018-07-11 - SCR MAMM BILATERAL BILATERAL CAD 15:56:42 CAD DIGITALBILATERAL DIGITAL DIGITAL SCREENING MAMMOGRAM WITH CAD: 07/05/2018CLINICAL: Asymptomatic. Current mammographic images were evaluated by either a [facility] M-Vu or a [facility] ImageChecker CAD (computer aided detection system). Comparison is made to exams dated 08/11/2016 mammogram - [facility], 12/03/2014 mammogram, and 04/12/2013 mammogram - [facility]. There are scattered fibroglandular tissues in both breasts. No suspicious mass, architectural distortion, malignant type calcification, or lymph node abnormality detected. Breast architecture is stable compared to prior exams.IMPRESSION: NEGATIVEThere is no mammographic evidence of malignancy. Resume annual screening mammography in one year. Yoseph bethea/roney:07/11/2018 15:56:42 Insole Rasper: Nati Lilly MM, [facility]: BIRADS 1-2 Normal Mammogram BI-RADS: 1 Negative
--- OUTSIDE RECORDS SUMMARY | 2020-03-06 19:56 | XMS REPORT | Summary of Care ---
:1960 Author Organization [facility] Address [address] [place] [address] Care Team Providers Name Role Phone Pcp, Patient Does Not Have A Primary Care Provider +1-000-00 0-0000 Reason for Visit Reason Comments Authorization Encounter Details Date Type Department Care Team Description 01/09/2020 Telephone [facility] Orthopaedic Salvador Lopez MD Authorization Surgery- [place] [address] [facility], [place] [address] [address] [place], [place] [phone] Allergies Active Allergy Reactions Severity Noted Date Comments Hydrocodone-Acetaminophen Hives 08/29/2018 documented as of this encounter (statuses as of 01/09/2020) Medications Medication Sig Dispensed Refills Start Date [...] as of this encounter (statuses as of 01/09/2020) Active Problems Problem Noted Date Polyarthralgia 08/28/2019 Rheumatoid factor positive 08/28/2019 Chronic neck and back pain 08/28/2019 S/P laminectomy 08/28/2019 Other chronic pain 08/28/2019 Smoker 08/28/2019 Heberden nodes 08/28/2019 Hawk's nodes 08/28/2019 Acute internal derangement of left knee 09/09/2018 Overview: Added automatically from request for chanelle choi [id number] documented as of this encounter (statuses as of 01/09/2020) Social History Tobacco Use Types Packs/Day Years Used Date Current Every Day Smoker 1 30 Smokeless Tobacco: Never Used Alcohol Use Drinks/Week oz/Week Comments Yes 1-2 Glasses of wine 1.0 - 2.0 occasional h olidays Sex Assigned at Date Recorded Not on file Job Start Date Occupation Industry Not on file Not on file Not on file Travel History Travel Start Travel End No recent travel history available. documented as of this encounter Last Filed Vital Signs Not on filedocumented in this encounter Plan of Treatment Date Type Specialty Care Team Description 02/02/2020 Appointment Radiology Robinson Medina DO [address] [place] [address] 02/24/2020 Telemedicine Visit Rheumatology Sebas Eisenberg MD [address] [place], [place] [address] [address] [phone] Health Maintenance Due Date Last Done Comments PNEUMOCOCCAL 0-64 YEARS COMBINED SERIES (1 of 1 - 02/16/1968 PPSV23) DTaP,Tdap,and Td Vaccines (1 - Tdap) 1973 PAP SMEAR 1983 COLONOSCOPY 02/16/2012 Zoster Recombinant Vaccine (SHINGRIX) (1 of 2) 02/16/2012 LUNG CANCER SCREEN: Recommended for age 55-80 with 30 2017 + pack year history INFLUENZA VACCINE (#1) 2020 Depression Screening 10/28/2020 10/29/2019 Breast Cancer Screening (MAMMOGRAM) 11/03/2020 11/04/2019 HEPATITIS C (HCV) SCREEN Completed 08/28/2019 documented as of this encounter Results Not on filedocumented in this encounter Insurance Payer Benefit Plan / Subscriber ID Effective Dates Phone Addre ss Type Group [facility] xxxxxxxxx 2018-Present Medicaid COMM PLAN - PLUS MANAGED MEDICAID documented as of this encounter
--- OUTSIDE RECORDS SUMMARY | 2020-03-06 19:56 | XMS REPORT | Summary of Care ---
:1960 Author Organization [facility] Address [address] [place] [address] Care Team Providers Name Role Phone Pcp, Patient Does Not Have A Primary Care Provider +1-000-00 0-0000 Reason for Visit Reason Comments Notification [facility] Encounter Details Date Type Department Care Team Description 01/23/2020 Telephone [facility] Orthopaedic Salvador Lopez otification (The Surgery- Jorden Arteaga MD patient is calling to [address], [address]ry check the status of her [address] [place] [address] [address] [place], [place] ) [phone] Allergies Active Allergy Reactions Severity Noted Date Comments Hydrocodone-Acetaminophen Hives 08/29/2018 documented as of this encounter (statuses as of 01/27/2020) Medications Medication Sig Dispensed Refills Start Date [...] as of this encounter (statuses as of 01/27/2020) Active Problems Problem Noted Date Polyarthralgia 08/28/2019 Rheumatoid factor positive 08/28/2019 Chronic neck and back pain 08/28/2019 S/P laminectomy 08/28/2019 Other chronic pain 08/28/2019 Smoker 08/28/2019 Heberden nodes 08/28/2019 Hawk's nodes 08/28/2019 Acute internal derangement of left knee 09/09/2018 Overview: Added automatically from request for chanelle steph [id number] documented as of this encounter (statuses as of 01/27/2020) Social History Tobacco Use Types Packs/Day Years Used Date Current Every Day Smoker 1 30 Smokeless Tobacco: Never Used Alcohol Use Drinks/Week oz/Week Comments Yes 1-2 Glasses of wine 1.0 - 2.0 occasional h olidays Sex Assigned at Date Recorded Not on file COVID-19 Exposure Response Date Recorded In the last month, have you been in contact with No / Unsure 01/20/2020 12:21 PM CDT someone who was confirmed or suspected to have Coronavirus / COVID-19? documented as of this encounter Last Filed Vital Signs Not on filedocumented in this encounter Miscellaneous Notes Telephone Encounter - Yulisa Guerrero - 01/27/2020 2:41 PM CDTCalled patient explained that [facility] is going to contact her to get verbal approval knowledge of this injection and to verify her information. Once verified with patient, [facility] will call us to verify shipment, and address. I gave patient [facility] P#. Patient verbally understood, and appreciated the call back. Yulisa Guerrero 01/27/2020 2:43 PM elephone Encounter - Marlon Chatman - 01/23/2020 3:08 PM CDTThe patient is calling to check the status of her injection authorization documented in this encounter Plan of Treatment Date Type Specialty Care Team Description 02/02/2020 Appointment Radiology Robinson Medina DO [facility] [place] [address] 02/03/2020 Appointment Radiology Radiology [address] [place] [address] 02/03/2020 Appointment Radiology Radiology [address] [place] [address] 02/24/2020 Telemedicine Visit Rheumatology Sebas Eisenberg MD [address] [place] [address] 77 [phone] Health Maintenance Due Date Last Done Comments PNEUMOCOCCAL 0-64 YEARS COMBINED SERIES (1 of 1 - 02/16/1968 PPSV23) DTaP,Tdap,and Td Vaccines (1 - Tdap) 1981 PAP SMEAR 1983 COLON CANCER SCREENING ANNUAL FIT/FOBT 02/16/2012 COLON CANCER SCREENING FIT DNA EVERY 3 YEARS 02/16/2012 COLON CANCER SCREENING SIGMOIDOSCOPY EVERY 5 YEARS 02/16/2012 COLONOSCOPY 02/16/2012 Colorectal Cancer Screening 02/16/2012 Zoster Recombinant Vaccine (SHINGRIX) (1 of [...] Effective Dates Phone Addre ss Type Group [facility] STAR [id number] 2018-Present Medicaid COMM PLAN - PLUS MANAGED MEDICAID documented as of this encounter
--- OUTSIDE RECORDS SUMMARY | 2020-03-06 19:56 | XMS REPORT | Summary of Care ---
:1960 Author Organization [facility] Address [address] [place] [address] Care Team Providers Name Role Phone Pcp, Patient Does Not Have A Primary Care Provider +1-000-00 0-0000 Reason for Visit Reason Comments Notification [facility]. Please call back with an upd ate Encounter Details Date Type Department Care Team Description 12/26/2019 Telephone [facility] Orthopaedic Salvador Lopez otification (The Surgery- Jorden Arteaga MD patient is calling to [address], [address] check the status of her [address] [place] [address] [address] [place], [place] Please call back with an [phone] update) [phone] Allergies Active Allergy Reactions Severity Noted Date Comments Hydrocodone-Acetaminophen Hives 08/29/2018 documented as of this encounter (statuses as of 12/26/2019) Medications Medication Sig Dispensed Refills Start Date [...] as of this encounter (statuses as of 12/26/2019) Active Problems Problem Noted Date Polyarthralgia 08/28/2019 Rheumatoid factor positive 08/28/2019 Chronic neck and back pain 08/28/2019 S/P laminectomy 08/28/2019 Other chronic pain 08/28/2019 Smoker 08/28/2019 Heberden nodes 08/28/2019 Hawk's nodes 08/28/2019 Acute internal derangement of left knee 09/09/2018 Overview: Added automatically from request for chanelle choi [id number] documented as of this encounter (statuses as of 12/26/2019) Social History Tobacco Use Types Packs/Day Years [...] Treatment Date Type Specialty Care Team Description 01/06/2020 Office Visit Rheumatology Alberto Sheridan, DO [address] [place] [address] [phone] 01/08/2020 Appointment Radiology Radiology [address] [place] [address] 01/08/2020 Appointment Radiology Radiology [address] [place] [address] 02/02/2020 Appointment Radiology Robinson Medina, [address] [place] [phone] Health Maintenance Due Date Last Done Comments [...] Effective Dates Phone Addre ss Type Group [facility] STAR xxxxxxxxx 2018-Present Medicaid COMM PLAN - PLUS MANAGED MEDICAID documented as of this encounter
--- OUTSIDE RECORDS SUMMARY | 2020-03-06 19:56 | XMS REPORT | Summary of Care ---
:1960 Author Organization [facility] - [facility] Address [address] [place] [address] Care Team Providers Name Role Phone May Montenegro Primary Care Provider Reason for Referral Radiology Services (Routine) Status Reason Specialty Diagnoses / Referred By Referred To Procedures Contact Contact Closed Diagnostic Diagnoses Other abnormal and inconclusive findings on diagnostic imaging of breast Other abnormal and inconclusive findings on diagnostic imaging of breast [facility] Procedures BI ULTRASOUND BREAST COMPLETE BILATERAL CHG US BREAST UNI REAL TIME WITH IMAGE COMPLETE BI ULTRASOUND BREAST COMPLETE BILATERAL [address] [place] [address] Reason for Visit Radiology Services (Routine) Status Reason Specialty Diagnoses / Referred By Referred To Procedures Contact Contact Closed Diagnostic Diagnoses Other abnormal and inconclusive findings on diagnostic imaging of breast Other abnormal and inconclusive findings on diagnostic imaging of breast [facility] Procedures BI ULTRASOUND BREAST COMPLETE BILATERAL CHG US BREAST UNI REAL TIME WITH IMAGE COMPLETE BI ULTRASOUND BREAST COMPLETE BILATERAL [address] [place] [address] Encounter Details Date Type Department Care Team Description 02/03/2020 Hospital Encounter [facility] Radiology Arrived [facility] Breast [address] [facility] [place] [address] [address] [place] [address] Allergies Active Allergy Reactions Severity Noted Date Comments Hydrocodone-Acetaminophen Hives 08/29/2018 documented as of this encounter (statuses as of 02/04/2020) Medications Medication Sig Dispensed Refills Start Date [...] as of this encounter (statuses as of 02/04/2020) Active Problems Problem Noted Date Polyarthralgia 08/28/2019 Rheumatoid factor positive 08/28/2019 Chronic neck and back pain 08/28/2019 S/P laminectomy 08/28/2019 Other chronic pain 08/28/2019 Smoker 08/28/2019 Heberden nodes 08/28/2019 Hawk's nodes 08/28/2019 Acute internal derangement of left knee 09/09/2018 Overview: Added automatically from request for chanelle choi [id number] documented as of this encounter (statuses as of 02/04/2020) Social History Tobacco Use Types Packs/Day Years [...] Treatment Date Type Specialty Care Team Description 02/24/2020 Telemedicine Visit Rheumatology Sebas Eisenberg MD [address] [place] [address] [phone] Health Maintenance Due Date Last Done [...] Recombinant Vaccine (SHINGRIX) (1 of 2) 02/16/2012 INFLUENZA VACCINE (#1) 2020 Depression Screening 10/28/2020 10/29/2019 Breast Cancer Screening (MAMMOGRAM) 11/03/2020 11/04/2019 LUNG CANCER SCREEN: Recommended for age 55-80 with 30 02/01/2021 02/02/2020 + pack year history HEPATITIS C (HCV) SCREEN Completed 08/28/2019 documented as of this encounter Procedures Procedure Name Priority Date/Time Associated Diagnosis Comme nts BI ULTRASOUND Routine 02/03/2020 4:02 Other abnormal and Resu lts for this BREAST COMPLETE PM CDT inconclusive findings pro cedure are in BILATERAL on diagnostic imaging the re sults of breast section. documented in this encounter Results BI ULTRASOUND BREAST COMPLETE BILATERAL (02/03/2020 4:02 PM CDT) Specimen Narrative Performed At This result has an attachment that is no t available. Examination: PACS BI DIAGNOSTIC TOMOSYNTHESIS BILATERAL BI ULTRASOUND BREAST COMPLETE BILATERAL History: Patient is 59 year old and is seen for: Bilateral di ffuse pain. Computer-aided detection (CAD) utilized. Comparisons: 11/04/2019 BI SELF-REFERRED SCREENING MARTINA MOGRAM BILATERAL and 07/05/2018 BI SCREENING TOMOSYNTHESIS BILATERAL Findings: The breasts have scattered areas of fibroglandular den sity. Right BI DIAGNOSTIC TOMOSYNTHESIS BILATERAL There is no evidence of suspicious masses, calcificati ons, or other abnormal findings in the right breast. There has been no significant interval change. BI ULTRASOUND BREAST COMPLETE BILATERAL Complete breast ultrasound was performed including all 4 quadrants and the subareolar region. The axilla was also included. No suspicious masses or areas of abnormal shadowing ar e identified. There is no axillary lymphadenopathy. Left BI DIAGNOSTIC TOMOSYNTHESIS BILATERAL There is no evidence of suspicious masses, calcificati ons, or other abnormal findings in the left breast. There has been n o significant interval change. BI ULTRASOUND BREAST COMPLETE BILATERAL Complete breast ultrasound was performed including all 4 quadrants and the subareolar region. The axilla was also included. No suspicious masses or areas of abnormal shadowing ar e identified. There is no axillary lymphadenopathy. Impression: Benign, no evidence of malignancy. Recommendation: Annual mammographic follow-up - Bilateral BI-RADS Category: Both 2 - Benign Performing Organization Address City/State/Zipcode Phone Number PACS documented in this encounter Visit Diagnoses Diagnosis Other abnormal and inconclusive findings on diagnostic imaging of breast documented in this encounter Insurance Payer Benefit Plan / Subscriber ID Effective Dates Phone Addre Type Group [facility] [id number] 2018-Present Medicaid COMM PLAN - PLUS MANAGED MEDICAID documented as of this encounter
--- OUTSIDE RECORDS SUMMARY | 2020-03-06 19:56 | XMS REPORT | Summary of Care ---
:1960 Author Organization [facility] - [facility] Address [address] [place] [address] Care Team Providers Name Role Phone May Montenegro Primary Care Provider Reason for Visit Radiology Services (Routine) Status Reason Specialty Diagnoses / Referred By Referred To Procedures Contact Contact New Request Diagnostic Diagnoses Other abnormal and inconclusive findings on diagnostic imaging of breast Breast pain Other abnormal and inconclusive findings on diagnostic imaging of breast [facility] Procedures BI DIAGNOSTIC TOMOSYNTHESIS BILATERAL BI DIAGNOSTIC MAMMOGRAM BILATERAL CHG DIAGNOSTIC MAMMOGRAPHY COMPUTER-AIDED DETCJ BI BI DIAGNOSTIC MAMMOGRAM BILATERAL [address] [place] [address] Encounter Details Date Type Department Care Team Description 02/03/2020 Hospital Encounter [facility] Radiology [facility] Breast [address] [facility] [place] [address] [address] [place] [address] Allergies Active Allergy Reactions Severity [...] Added automatically from request for chanelle choi [id number] documented as of this encounter (statuses as [...] 02/24/2020 Telemedicine Visit Rheumatology Sebas Eisenberg MD [address] [place] [address] [phone] Health Maintenance Due Date Last [...] Priority Date/Time Associated Diagnosis Comme nts BI DIAGNOSTIC Routine 02/03/2020 3:29 Other abnormal and Resu lts for this TOMOSYNTHESIS PM CDT inconclusive procedure are in BILATERAL findings on the results diagnostic imaging section. of breast Breast pain documented in this encounter Results BI DIAGNOSTIC TOMOSYNTHESIS BILATERAL (02/03/2020 3:29 PM CDT) Specimen Narrative Performed At This [...] inconclusive findings on diagnostic imaging of breast Breast pain Mastodynia documented in this encounter Insurance Payer Benefit Plan / Subscriber ID Effective Dates Phone Addre ss Type Group [facility] [id number] 2018-Present Medicaid COMM PLAN - PLUS MANAGED MEDICAID documented as of this encounter
--- OUTSIDE RECORDS SUMMARY | 2020-03-06 19:56 | XMS REPORT | Summary of Care ---
:[address] [facility] Address [address] [place] [address] Care Team Providers Name Role Phone May Montenegro Primary Care Provider Reason for Referral MRI/CAT Scan (Routine) Status Reason Specialty Diagnoses / Referred By Referred To Procedures Contact Contact Closed Diagnostic Diagnoses Lung nodule Dyspnea on exertion LUNG NODULE DYSPNEA ON EXERTION Robinson Medina DO Radiology Procedures CT LUNG NODULE CT THORAX WO CONTRAST CHG CT SCAN,THORAX,W/O CONTRAST CT THORAX WO CONTRAST [address] [place] [address] Reason for Visit MRI/CAT Scan (Routine) Status Reason Specialty Diagnoses / Referred By Referred To Procedures Contact Contact Closed Diagnostic Diagnoses Lung nodule Dyspnea on exertion LUNG NODULE DYSPNEA ON EXERTION Robinson Medina DO Radiology Procedures CT LUNG NODULE CT THORAX WO CONTRAST CHG CT SCAN,THORAX,W/O CONTRAST CT THORAX WO CONTRAST [address] [place] [address] Encounter Details Date Type Department Care Team Description 02/02/2020 Hospital Encounter [facility] Davide Medina DO Arrived [place] [facility] [address] [place] [phone] [phone] Allergies Active Allergy Reactions Severity Noted Date Comments Hydrocodone-Acetaminophen Hives 08/29/2018 documented as of this encounter (statuses as of 02/03/2020) Medications Medication Sig Dispensed Refills Start Date [...] as of this encounter (statuses as of 02/03/2020) Active Problems Problem Noted Date Polyarthralgia 08/28/2019 Rheumatoid factor positive 08/28/2019 Chronic neck and back pain 08/28/2019 S/P laminectomy 08/28/2019 Other chronic pain 08/28/2019 Smoker 08/28/2019 Heberden nodes 08/28/2019 Hawk's nodes 08/28/2019 Acute internal derangement of left knee 09/09/2018 Overview: Added automatically from request for chanelle choi [id number] documented as of this encounter (statuses as of 02/03/2020) Social History Tobacco Use Types Packs/Day Years [...] Treatment Date Type Specialty Care Team Description 02/03/2020 Appointment Radiology Radiology [address] [place] [address] 02/03/2020 Appointment Radiology Radiology [address] [place] [address] 02/24/2020 Telemedicine Visit Rheumatology Sebas Eisenberg MD [address] [place] [phone] Health Maintenance Due Date Last [...] Name Priority Date/Time Associated Diagnosis Comme nts CT LOW DOSE LUNG Routine 02/02/2020 1:05 PM Lung nodule Results for this NODULE CDT Dyspnea on exertion procedur e are in the results section. documented in this encounter Results CT LUNG NODULE (02/02/2020 1:05 PM CDT) Specimen Impressions Performed At PACS/VR/DOSE Two noncalcified lung nodules largest measures 0.5 cm. Follow-up CT chest (lung nodule protocol) in 12 months is r ecommended in a smoker. Recommendations for Follow-up and Management of Indete rminate Lung Nodules Detected Incidentally on Non-screening C T can be found in the following article (Adapted from the [employer] i[employer] 2017). http://pubs.rsna.org/doi/full/10.1148/ra diol.275295213 Preliminary Report Dictated by Resident: Isela Parsons I, Rodrigo Dickson MD., have reviewed this study and agree with the above report. Narrative Performed At PROCEDURE: CT CHEST NON CONTRAST - NODUL E PROTOCOL PACS/VR/DOSE CLINICAL INDICATION: Lung nodule, <1cm, mod-high risk COMPARISON: None is available on duty in the PACS. As per history it appears another CT has been done.. TECHNIQUE: Low dose helical CT was acquired from lung apices to bases, and reconstructed at 1.25 mm every 0.625 mm, without intra venous contrast. MIP and coronal & sagittal MPR images were generated and r eviewed. (DFOV = 40 cm) FINDINGS: Lower neck/thyroid: Unremarkable. Lungs: A 0.7 cm right upper lung calcifi ed nodule (2:22). There is the following non-calcified lily id lung nodules: - 0.5 mm right upper lobe, image #(2 :12). - 0.3 cm right lower lobe nodule, (2:1 11). Central airway: Unremarkable. Pleura: No pleural effusion, thickening or pneumothorax. Thoracic aorta and great vessels: Norm al in diameter. Pulmonary arteries: Unremarkable. Heart and pericardium: Coronary rarteria l calcification. Unremarkable cardiac morphology and pericardium. Lymph nodes: Multiple subcentimeter subc arinal and hilar lymph nodes are noted; for example 0.9 cm right hilar ly mph node (2:44). Mediastinum: Unremarkable. Thoracic spine and chest wall: Unremarkable, with norm al thoracic vertebral body heights. Other Lines/Tubes/Devices/Hardware: None Visualized upper abdomen: Unremarkable._ Procedure Note [facility], Radiant Results Inft User - 2019 4:38 PM CDT PROCEDURE: CT CHEST NON CONTRAST - NODULE PROTOCOL CLINICAL INDICATION: Lung nodule, <1cm, mod-high risk COMPARISON: None is available on duty in the PACS. As per history it appears another CT has been done.. TECHNIQUE: Low dose helical CT was acqui red from lung apices to bases, and reconstructed at 1.25 mm every 0.625 mm, without intravenous contrast. MIP and coronal & sagittal MPR images were g enerated and reviewed. (DFOV = 40 cm) FINDINGS: Lower neck/thyroid: Unremarkable. Lungs: A 0.7 cm right upper lung calcifi ed nodule (2:22). There is the following non-calcified lily id lung nodules: - 0.5 mm right upper lobe, image #(2:1 2). - 0.3 cm right lower lobe nodule, (2:11 1). Central airway: Unremarkable. Pleura: No pleural effusion, thickening or pneumothorax. Thoracic aorta and great vessels: Mirtha l in diameter. Pulmonary arteries: Unremarkable. Heart and pericardium: Coronary rarteria l calcification. Unremarkable cardiac morphology and pericardium. Lymph nodes: Multiple subcentimeter subc arinal and hilar lymph nodes are noted; for example 0.9 cm right hilar ly mph node (2:44). Mediastinum: Unremarkable. Thoracic spine and chest wall: Unremarka ble, with normal thoracic vertebral body heights. Other Lines/Tubes/Devices/Hardware: None Visualized upper abdomen: Unremarkable._ IMPRESSION Two noncalcified lung nodules largest me asures 0.5 cm. Follow-up CT chest (lung nodule protocol) in 12 months is r ecommended in a smoker. Recommendations for Follow-up and Manage ment of Indeterminate Lung Nodules Detected Incidentally on Non-screening C T can be found in the following article (Adapted from the [employer] r[employer] 2017). http://pubs.rsna.org/doi/full/10.1148/ra diol.635142222 Preliminary Report Dictated by Resident: Isela Parsons I, Rodrigo Dickson MD., have revie wed this study and agree with the above report. Performing Organization Address City/State/Zipcode Phone Number PACS/VR/DOSE documented in this encounter Visit Diagnoses Diagnosis Lung nodule Solitary pulmonary nodule Dyspnea on exertion Other dyspnea and respiratory abnormalit y documented in this encounter Insurance Payer Benefit Plan / Subscriber ID Effective Dates Phone Addre ss Type Group [facility] [id number] 2018-Present Medicaid COMM PLAN - PLUS MANAGED MEDICAID documented as of this encounter
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
--- OUTSIDE RECORDS SUMMARY | 2020-03-06 19:57 | XMS REPORT | Summary of Care ---
:1960 Author Organization [facility] Address [address] [place] [id number] Care Team Providers Name Role Phone May [place]en[place] Primary Care Provider Reason for Visit Reason Comments Follow-up 1st Euflexxa injection Knee Pain Lt (Routine) Status Reason Specialty Diagnoses / Referred By Referred To Procedures Contact Contact Authorized PA-PHYSICIAN Diagnoses Unilateral primary osteoarthritis, left knee 1st Euflexxa Injection Left Knee Salvador Lopez Brett RAG WILLOW OPERATOR / Procedures CONSULT/REFERRAL ORTHOPAEDIC SURGERY GA EUFLEXXA INJ PER DOSE GA ARTHROCENTESIS ASPIR&/INJ MAJOR JT/BURSA W/O US FOLLOW-UP PATIENT VISIT MD Chandler S, PAC Orthopedic [address] [facility] [address] [place], [place] Phone: [phone] Phone: Encounter Details Date Type Department Care Team Description 02/24/[address] [facility] Roel Robertson S, Post-traumat ic Orthopaedic Surgery- PAC osteoarthritis of left [place] [address] knee (Primary Dx) [address] [place] [address] [place] [phone] Allergies Active Allergy Reactions Severity Noted Date Comments Hydrocodone-Acetaminophen Hives 08/29/2018 documented as of this encounter (statuses as of 02/26/2020) Medications Medication Sig Dispensed Refills Start Date End Date Status gabapentin 800 mg tablet Take 800 mg by 0 08/20/2018 Active mouth 3 (three) times daily. gabapentin 600 mg tablet Take 600 mg by 0 08/20/2018 Active mouth at bedtime. lisinopril 2.5 mg tablet Take 2.5 mg by 0 08/20/2018 Active mouth daily. metFORMIN 1,000 mg Take 1,000 mg by 0 08/26/2018 Active tablet mouth 2 (two) times daily with meals. lamoTRIgine 100 mg 0 08/07/2018 Active tablet glimepiride 4 mg tablet 0 07/27/2018 Active atorvastatin 80 mg 0 08/13/2018 Active tablet traZODone 150 mg tablet Take 200 mg by 0 07/30/2018 Active mouth at bedtime. citalopram 20 mg tablet Take 30 mg by 0 Active mouth daily. OMEGA3,5,6,7,9 Take by mouth. 0 Active NO.1-SALMON OIL ORAL ibuprofen (MOTRIN ORAL) Take by mouth 0 Active as needed. Hospital, Clinic, or Ordered Dose Route Frequency Start Date End D ate Status Other Facility Administered Medication sodium hyaluronate 20 mg Intra-articu ONCE 02/24/2020 020 Ended (viscosup) (EUFLEXXA) intra-articular injection 20 mg documented as of this encounter (statuses as of 02/26/2020) Active Problems Problem Noted Date Polyarthralgia 08/28/2019 Rheumatoid factor positive 08/28/2019 Chronic neck and back pain 08/28/2019 S/P laminectomy 08/28/2019 Other chronic pain 08/28/2019 Smoker 08/28/2019 Heberden nodes 08/28/2019 Hawk's nodes 08/28/2019 Acute internal derangement of left knee 09/09/2018 Overview: Added automatically from request for chanelle steph [id number] documented as of this encounter (statuses as of 02/26/2020) Social History Tobacco Use Types Packs/Day Years Used Date Current Every Day Smoker 1 30 Smokeless Tobacco: Never Used Alcohol Use Drinks/Week oz/Week Comments Yes 1-2 Glasses of wine 1.0 - 2.0 occasional h olidays Sex Assigned at Date Recorded Not on file COVID-19 Exposure Response Date Recorded In the last month, have you been in contact with Yes 02/25/2020 1:37 PM CDT someone who was confirmed or suspected to have Coronavirus / COVID-19? documented as of this encounter Last Filed Vital Signs Vital Sign Reading Time Taken Comments Blood Pressure 104/68 02/24/2020 10:24 AM CDT Pulse 91 02/24/2020 10:24 AM CDT Temperature - - Respiratory Rate - - Oxygen Saturation - - Inhaled Oxygen Concentration - - Weight 82.6 kg (182 lb) 02/24/2020 10:24 AM CDT Height 172.7 cm (5' 8") 02/24/2020 10:24 AM CDT Body Mass Index 27.67 02/24/2020 10:24 AM CDT documented in this encounter Progress Notes Roel Robertson S, PAC - 02/24/2020 10:30 AM CDT Cc: Chief Complaint Patient presents with Follow-up 1st Euflexxa injection Knee Pain Lt Janell Presley is a 60 year old female. HPI Allergies Janell is allergic to vicodin [hydrocodone-acetaminophen]. Medications Outpatient Medications Prior to Visit Medication Sig Dispense Refill ibuprofen (MOTRIN ORAL) Take by mouth as needed. OMEGA3,5,6,7,9 NO.1-SALMON OIL ORAL Take by mouth. atorvastatin 80 mg tablet citalopram 20 mg tablet Take 30 mg by mouth daily. gabapentin 600 mg tablet Take 600 mg by mouth at bedtime. gabapentin 800 mg tablet Take 800 mg by mouth 3 (three) times daily. glimepiride 4 mg tablet lamoTRIgine 100 mg tablet lisinopril 2.5 mg tablet Take 2.5 mg by mouth daily. metFORMIN 1,000 mg tablet Take 1,000 mg by mouth 2 (two) times daily with meals. traZODone 150 mg tablet Take 200 mg by mouth at bedtime. No facility-administered medications prior to visit. Histories Past Medical History: Diagnosis Date Arthritis Bipolar 1 disorder Bursitis left shoulder DM (diabetes mellitus) 2003 Neuropathy Restless leg syndrome Past Surgical History: Procedure Laterality Date BACK SURGERY 1999 KNEE ARTHROSCOPY Left 09/16/2018 Surgeon: Salvador Lopez MD; Location[place] [facility] [place] REMOVAL OF OVARIAN CYST(S) Left 2009 TUBAL LIGATION 1988 Social History Socioeconomic History Marital status: Spouse name: Not on file Number of children: Not on file Years of education: Not on file Highest education level: Not on file Occupational History Not on file Social Needs Financial resource strain: Not on file Food insecurity Worry: Not on file Inability: Not on file Transportation needs Medical: Not on file Non-medical: Not on file Tobacco Use Smoking status: Current Every Day Smoker Packs/day: 1.00 Years: 30.00 Pack years: 30.00 Smokeless tobacco: Never Used Substance and Sexual Activity Alcohol use: Yes Alcohol/week: 1.0 - 2.0 standard drinks Types: 1 - 2 Glasses of wine per week Comment: occasional holidays Drug use: Not on file Sexual activity: Not on file Lifestyle Physical activity Days per week: Not on file Minutes per session: Not on file Stress: Not on file Relationships Social connections Talks on phone: Not on file Gets together: Not on file Attends tenriism service: Not on file Active member of club or organization: Not on file Attends meetings of clubs or organizations: Not on file Relationship status: Not on file Intimate partner violence Fear of current or ex partner: Not on file Emotionally abused: Not on file Physically abused: Not on file Forced sexual activity: Not on file Other Topics Concern Not on file Social History Narrative Not on file History reviewed. No pertinent family history. Review of Systems Constitutional: Negative. HENT: Negative. Eyes: Negative. Respiratory: Negative. Breasts: Negative. Cardiovascular: Negative. Gastrointestinal: Negative. Genitourinary: Negative. Musculoskeletal: Positive for back pain and myalgias. Skin: Negative. Neurological: Negative. Psychiatric/Behavioral: Negative. Endocrine: Endocrine negative Vital Signs Vitals: 02/24/20 1024 BP: 104/68 Pulse: 91 Weight: 82.6 kg (182 lb) Height: 68" (172.7 cm) Physical Exam Assessment/Plan 1. Post-traumatic osteoarthritis of left knee Here for first of 3 year flex injections in the left knee. The knee was examined and marked with ultrasound guidance. The skin was then prepped thoroughly 3 times in a bull's-eye fashion with Betadine and then cleaned with alcohol allowing the alcohol to soak for 30 seconds. Ethyl chloride anesthetic spray was used to provide cryo-anesthesia. Under ultrasoundguidance the needle was advanced into the knee joint behind the fat pad and euflexxa prefilled syringe was injected. The site was cleansed with alcohol then dried with a sterile 4 x 4 and a sterile Band-Aid was applied. Patient tolerated procedure well, no reactions were noted. This is a large joint/i ntraarticular/intramuscular injection. Post Injection Recommendations but not required: 1. Avoid physical activity for 48 hours following an injection to keep the knee from swelling. 2. Ice your knee if you have any mild pain or swelling near the injection site. 3. Avoid standing on your feet for more than 1 hour at a time during the first 48 hours following the injection. documented in this encounter Plan of Treatment Date Type Specialty Care Team Description 03/02/2020 Office Visit Orthopedic Surgery Roel Robertson PAC [address] [phone] Health Maintenance Due Date Last Done Comments PNEUMOCOCCAL 0-64 YEARS COMBINED SERIES (1 02/16/1968 of 1 - PPSV23) DTaP,Tdap,and Td Vaccines (1 - Tdap) 1981 PAP SMEAR 1983 COLON CANCER SCREENING ANNUAL FIT/FOBT 02/16/2012 COLON CANCER SCREENING FIT DNA EVERY 3 02/16/2012 YEARS COLON CANCER SCREENING SIGMOIDOSCOPY EVERY 02/16/2012 5 YEARS COLONOSCOPY 02/16/2012 Colorectal Cancer Screening 02/16/2012 Zoster Recombinant Vaccine (SHINGRIX) (1 02/16/2012 of 2) INFLUENZA VACCINE (#1) 2020 Depression Screening 10/28/2020 10/29/2019 LUNG CANCER SCREEN: Recommended for age 0802/01/2021 02/02/20 20 55-80 with 30 + pack year history Breast Cancer Screening (MAMMOGRAM) 02/02/2021 02/03/2020, 11/04/2019 HEPATITIS C (HCV) SCREEN Completed 08/28/2019 documented as of this encounter Results Not on filedocumented in this encounter Visit Diagnoses Diagnosis Post-traumatic osteoarthritis of left kn ee - Primary Secondary localized osteoarthrosis, lowe r leg documented in this encounter Administered Medications Medication Order MAR Action Action Date Dose Rate Site sodium hyaluronate (viscosup) Given 02/24/2020 10:28 AM CDT 20 m g Left Knee (EUFLEXXA) intra-articular injection 20 mg 20 mg, Intra-articular, ONCE, 1 dose, 02/24/20 at 1130, Routine documented in this encounter Insurance Payer Benefit Plan / Subscriber ID Effective Dates Phone Addre ss Type Group [facility] [id number] 2018-Present Medicaid COMM PLAN - PLUS MANAGED MEDICAID documented as of this encounter
--- OUTSIDE RECORDS SUMMARY | 2020-03-06 19:57 | XMS REPORT | Summary of Care ---
:1960 Author Organization [facility] Address [address] [place] [address] Care Team Providers Name Role Phone Lan May Primary Care Provider Encounter Details Date Type Department Care Team Description 02/25/2020 Letter (Out) [facility] Message s Doctor Unassigned, No [address] [facility] [place] [address] [address] [facility] [phone] [place] [address] Allergies Active Allergy Reactions Severity Noted Date Comments Hydrocodone-Acetaminophen Hives 08/29/2018 documented as of this encounter (statuses as of 02/25/2020) Medications Medication Sig Dispensed Refills Start Date [...] Take by mouth 0 Active as needed. documented as of this encounter (statuses as of 02/25/2020) Active Problems Problem Noted Date Polyarthralgia 08/28/2019 Rheumatoid factor positive 08/28/2019 Chronic neck and back pain 08/28/2019 S/P laminectomy 08/28/2019 Other chronic pain 08/28/2019 Smoker 08/28/2019 Heberden nodes 08/28/2019 Hawk's nodes 08/28/2019 Acute internal derangement of left knee 09/09/2018 Overview: Added automatically from request for chanelle choi [id number] documented as of this encounter (statuses as of 02/25/2020) Social History Tobacco Use Types Packs/Day Years Used Date Current Every Day Smoker 1 30 Smokeless Tobacco: Never Used Alcohol Use Drinks/Week oz/Week Comments Yes 1-2 Glasses of wine 1.0 - 2.0 occasional h olidays Sex Assigned at Date Recorded Not on file COVID-19 Exposure Response Date Recorded In the last month, have you been in contact with No / Unsure 02/24/2020 10:23 AM CDT someone who was confirmed or suspected to have Coronavirus / COVID-19? documented as of this encounter Last Filed Vital Signs Not on filedocumented in this encounter Plan of Treatment Date Type Specialty Care Team Description 03/02/2020 Office Visit Orthopedic Surgery Roel Robertson S, PAC [address] [place] [phone] Health Maintenance Due Date Last Done [...] Effective Dates Phone Addre ss Type Group [facility] [id number] 2018-Present Medicaid COMM PLAN - PLUS MANAGED MEDICAID documented as of this encounter
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
--- OUTSIDE RECORDS SUMMARY | 2020-03-06 19:57 | XMS REPORT | Summary of Care ---
:1960 Author Organization [facility] Address [address] [place] [address] Care Team Providers Name Role Phone MontenegroMay Primary Care Provider Reason for Visit Reason Comments LAB covid Encounter Details Date Type Department Care Team Description 02/25/2020 Laboratory Only [facility] Family Vin Dimas FNP [address] [place] [phone] Suspected Covid-19 [facility], Adc Fam Pob I Virus Infection [address] [place] [address] (Primary D x) [place] [address] Allergies Active Allergy Reactions Severity Noted Date [...] Added automatically from request for chanelle choi [id number] documented as of this encounter (statuses as [...] Signs Not on filedocumented in this encounter Nursing Notes Sara Valles RN - 02/25/2020 1:20 PM Yenny Presley is a 60 year old female here for COVID Screening with a Nasopharyngeal Swab All droplet and contact precautions taken with appropriate PPE worn while interacting with patient. ? Goggles ? N95 Mask ? Gloves ? Gown RR 17 Pulse Ox 97% Patient educated on plan of care for visit, swabbing technique, risks and benefits of test and length of time to receive results. Verbal consent obtained to perform test. CDC Fact Sheet for Patients nCoV Diagnostic Panel dated 08/24/2019 and Factsheet What to Do if Sick with COVID 19 08/04/19 provided. Patient swabbed per appropriate nasopharyngeal technique, and patient tolerated well. Patient was discharged from the testing clinic in stable condition. Sara Valles RN 02/25/2020 1:35 PM documented in this encounter Plan of Treatment Date Type Specialty Care Team Description 03/02/2020 Office Visit Orthopedic Surgery Roel Robertson, PAC [address] [place], [place] [phone] Name Type Priority Associated Diagnoses Order S chedule COVID-19 (PCR MOLECULAR LAB Routine Suspected Covid-1 9 Virus Expected: 02/25/2020, TESTING) Infection Expires: 2020 Health Maintenance Due Date Last Done Comments [...] filedocumented in this encounter Visit Diagnoses Diagnosis Suspected Covid-19 Virus Infection - [facility] documented in this encounter Additional Health Concerns Infection Onset Date Last Indicated Resolved Time COVID-19 Rule Out 02/25/2020 02/25/2020 documented as of this encounter Insurance Payer Benefit Plan / Subscriber ID Effective Dates Phone Addre ss Type Group [facility] [id number] 2018-Present Medicaid COMM PLAN - PLUS MANAGED MEDICAID documented as of this encounter
--- OUTSIDE RECORDS SUMMARY | 2020-03-06 19:57 | XMS REPORT | Summary of Care ---
:1960 Author Organization [facility] Address [address] [place] [address] Care Team Providers Name Role Phone Lan May Primary Care Provider Reason for Visit Reason Comments Follow-up Encounter Details Date Type Department Care Team Description 02/24/2020 Telemedicine Visit [facility] Sebas Eisenberg MD Polyarthralgia (Primary Dx); Rheumatology-[address] Rheum toid factor positive; [facility] Multispecialty [facility] nodes; [place], [place] Hawk's nodes; [address] [facility] [address] Chronic neck and back pain; [facility], [facility] B [phone] Other chronic pain; [place], [place] [phone] S/P laminect zach; [phone] (Fax) Smoker [phone] Allergies Active Allergy Reactions Severity Noted Date [...] Added automatically from request for chanelle choi [id number] documented as of this encounter (statuses as of 02/24/2020) Social History Tobacco Use Types Packs/Day Years Used Date Current Every Day Smoker 1 30 Smokeless Tobacco: Never Used Alcohol Use Drinks/Week oz/Week Comments Yes 1-2 Glasses of wine 1.0 - 2.0 occasional h olidays Sex Assigned at Date Recorded Not on file documented as of this encounter Last Filed Vital Signs Not on filedocumented in this encounter Patient Instructions Patient InstructionsSebas Eisenberg MD - 02/24/2020 9:00 AM CDTPlease get the labs done (future orders in place, patient to call lab for appointment) Please follow up with Orthopedics and PCP Rtc in 1 year documented in this encounter Progress Notes Sebas Eisenberg MD - 02/24/2020 9:00 AM [...] Left 09/16/2018 Surgeon: Salvador Lopez MD; Location: [facility] [place] REMOVAL OF OVARIAN CYST(S) Left 2009 TUBAL [...] file Gets together: Not on file Attends samaritan service: Not on file Active member of [...] 305.1 Overall Plan: Polyarthralgia (primary encounter diagnosis) Heberden nodes Hawk's nodes Comment: She states she had [...] (AVS ) documentation will be available through [employer] for this encounter. Sebas Eisenberg MD, MPH PGY-6 Rheumatology Fellow 02/24/2020 8:10 AM Pager: [phone] documented in this encounter Plan of Treatment Date Type Specialty Care Team Description 02/24/2020 Office Visit Orthopedic Surgery Roel Robertson S, PAC [address] [place], [place] [phone] Name Type Priority Associated Diagnoses Order [...] Dates Phone Addre ss Type Group [facility] [id number] 2018-Present Medicaid COMM PLAN - PLUS MANAGED MEDICAID documented as of this encounter
--- OUTSIDE RECORDS SUMMARY | 2020-03-06 19:57 | XMS REPORT | Summary of Care ---
:1960 Author Organization [facility] Address [address] [place] [address] Care Team Providers Name Role Phone May Monten[place] Primary Care Provider Reason for Visit Reason Comments Follow-up 1st Euflexxa injection Knee Pain Lt (Routine) Status Reason Specialty Diagnoses / Referred By Referred To Procedures Contact Contact Authorized PA-PHYSICIAN Diagnoses Unilateral primary osteoarthritis, left knee 1st Euflexxa Injection Left Knee Salvador Lopez Brett REGULATORY ASSOCIATE / Procedures CONSULT/REFERRAL ORTHOPAEDIC SURGERY MD EUFLEXXA INJ PER DOSE MD ARTHROCENTESIS ASPIR&/INJ MAJOR JT/BURSA W/O US FOLLOW-UP PATIENT VISIT MD Chandler S, PAC Orthopedic [address] [facility] [address] [place], [place] Phone: [phone] Phone: Encounter Details Date Type Department Care Team Description 02/24/2020 Office Visit [facility] Roel Robertson S, Post-traumat ic Orthopaedic Surgery- PAC osteoarthritis of left [place] [address] knee (Primary Dx) [address] [place] [place] [address] [place] [phone] Allergies Active Allergy Reactions [...] Added automatically from request for chanelle steph [id number] documented as of this encounter (statuses as [...] Left 09/16/2018 Surgeon: Salvador Lopez MD; [place] [facility] REMOVAL OF OVARIAN CYST(S) Left 2009 TUBAL [...] file Gets together: Not on file Attends yazidism service: Not on file Active member of [...] Office Visit Orthopedic Surgery Roel Robertson PAC [address] [place] [phone] Health Maintenance Due Date Last Done [...] Effective Dates Phone Addre ss Type Group [facility] [id number] 2018-Present Medicaid COMM PLAN - PLUS MANAGED MEDICAID documented as of this encounter
--- OUTSIDE RECORDS SUMMARY | 2020-03-06 19:57 | XMS REPORT | Summary of Care ---
:1960 Author Organization [facility] Address [address] [place] [address] Care Team Providers Name Role Phone Pcp, Patient Does Not Have A Primary Care Provider +[id number] Lan Primary Care Provider Encounter Details Date Type Department Care Team Description 01/29/2020 Orders Only [facility] Doctor Unassigned, No [address] [facility] [place] [address] [address] [place] [address] Allergies Active Allergy Reactions Severity Noted Date Comments Hydrocodone-Acetaminophen Hives 08/29/2018 documented as of this encounter (statuses as of 02/11/2020) Medications Medication Sig Dispensed Refills Start Date [...] as of this encounter (statuses as of 02/11/2020) Active Problems Problem Noted Date Polyarthralgia 08/28/2019 Rheumatoid factor positive 08/28/2019 Chronic neck and back pain 08/28/2019 S/P laminectomy 08/28/2019 Other chronic pain 08/28/2019 Smoker 08/28/2019 Heberden nodes 08/28/2019 Hawk's nodes 08/28/2019 Acute internal derangement of left knee 09/09/2018 Overview: Added automatically from request for chanelel choi [id number] documented as of this encounter (statuses as of 02/11/2020) Social History Tobacco Use Types Packs/Day Years [...] Treatment Date Type Specialty Care Team Description 02/23/2020 Office Visit Dermatology Agustin Martinez MD [address] [place] [address]. [place] [address] [phone] 02/24/2020 Telemedicine Visit Rheumatology Sebas Eisenberg MD [address] [place] [address] [place] [phone] Health Maintenance Due Date Last [...] CANCER SCREEN: Recommended for age 0802/01/2021 02/02/20 55-80 with 30 + pack year history Breast Cancer Screening (MAMMOGRAM) 02/02/2021 02/03/2020, 11/04/2019 HEPATITIS C (HCV) SCREEN Completed 08/28/2019 documented as of this encounter Procedures Procedure Name Priority Date/Time Associated Diagnosis Comme nts MEDICATION CORRESPONDENCE Routine 01/29/2020 12:01 AM CDT documented in this encounter Results Not on filedocumented in this encounter Insurance Payer Benefit Plan / Subscriber ID Effective Dates Phone Addre ss Type Group [facility] [id number] 2018-Present Medicaid COMM PLAN - PLUS MANAGED MEDICAID documented as of this encounter
--- OUTSIDE RECORDS SUMMARY | 2020-03-06 19:58 | XMS REPORT | Summary of Care ---
:1960 Author Organization [facility] - Health Address [address] [place] [address] Care Team Providers Name Role Phone Lan May Primary Care Provider Encounter Details Date Type Department Care Team Description 02/09/2020 Orders Only [facility] Doctor Unassigned, No [address] [facility] [place] [address] [address] [place] [address] Allergies Active Allergy Reactions Severity Noted Date Comments Hydrocodone-Acetaminophen Hives 08/29/2018 documented as of this encounter (statuses as of 03/03/2020) Medications Medication Sig Dispensed Refills Start Date [...] 30 mg by 0 Active mouth daily. documented as of this encounter (statuses as of 03/03/2020) Active Problems Problem Noted Date Polyarthralgia 08/28/2019 Rheumatoid factor positive 08/28/2019 Chronic neck and back pain 08/28/2019 S/P laminectomy 08/28/2019 Other chronic pain 08/28/2019 Smoker 08/28/2019 [place] nodes 08/28/2019 Hawk's nodes 08/28/2019 Acute internal derangement of left knee 09/09/2018 Overview: Added automatically from request for chanelle choi [id number] documented as of this encounter (statuses as of 03/03/2020) Social History Tobacco Use Types Packs/Day Years [...] Treatment Date Type Specialty Care Team Description 03/05/2020 Office Visit Orthopedic Surgery Roel Robertson S, PAC [address] [place] [phone] Health Maintenance Due Date Last Done [...] Name Priority Date/Time Associated Diagnosis Comme nts REFERRAL- Routine 02/09/2020 12:01 AM CDT REQUEST/RESPONSE documented in this encounter Results Not on filedocumented in this encounter Additional Health Concerns Infection Onset Date Last Indicated Resolved Time COVID-19 Rule Out 02/25/2020 02/25/2020 02/26/2020 3: 48 PM CDT COVID-19 Confirmed 02/25/2020 02/25/2020 documented as of this encounter Insurance Payer Benefit Plan / Subscriber ID Effective Dates Phone Addre ss Type Group [facility] [id number] 2018-Present Medicaid COMM PLAN - PLUS MANAGED MEDICAID documented as of this encounter
--- OUTSIDE RECORDS SUMMARY | 2020-03-06 19:58 | XMS REPORT | Summary of Care ---
:1960 Author Organization [facility] - Health Address [address] [place] [address] Care Team Providers Name Role Phone Lan May Primary Care Provider Encounter Details Date Type Department Care Team Description 02/20/2020 Orders Only [facility] Doctor Unassigned, No 301 [facility] [place] [address] [address] [place] [address] Allergies Active Allergy Reactions Severity Noted Date [...] Overview: Added automatically from request for chanelle hcoi [id number] documented as of this encounter (statuses as [...] Visit Orthopedic Surgery Roel Robertson S, PAC [address] [place] [phone] Health Maintenance Due Date Last Done [...] Date/Time Associated Diagnosis Comme nts REFERRAL- Routine 02/20/2020 12:01 AM CDT REQUEST/RESPONSE documented in this encounter Results Not on filedocumented in this encounter Additional Health Concerns Infection Onset Date Last Indicated Resolved Time COVID-19 Rule Out 02/25/2020 02/25/2020 documented as of this encounter Insurance Payer Benefit Plan / Subscriber ID Effective Dates Phone Addre ss Type Group [facility] STAR [id number] 2018-Present Medicaid COMM PLAN - PLUS MANAGED MEDICAID documented as of this encounter
--- NOTE | 2020-03-06 21:21 | ER ---
Nurse's Notes [facility] Name: Janell Presley Age: 60 yrs Sex: Female : 1960 Arrival Date: 03/06/2020 Time: 19:56 Bed 8 Private MD: Diagnosis: Contusion of left forearm Presentation: 03/06 20:11 Chief complaint: Patient states: Fell 9-11. Left elbow pain since. Coronavirus screen: ll1 Client denies travel out of the [place] in the last 14 days. cough unrelated to allergies, Client presents with at least one sign or symptom that may indicate coronavirus-19. Standard/surgical mask placed on the client. Client reports previous positive COVID test result. Date of collection: February 24, 2020. Ebola Screen: Patient denies travel to an Ebola-affected area in the 21 days before illness onset. Initial Sepsis Screen: Does the patient meet any 2 criteria? HR > 90 bpm. No. Patient's initial sepsis screen is negative. Risk Assessment: Do you want to hurt yourself or someone else? Patient reports no desire to harm self or others. Onset of symptoms was February 20, 2020. 20:11 Method Of Arrival: Ambulatory ll1 20:11 Acuity: [place] 4 ll1 20:37 Initial Sepsis Screen: Does the patient have a suspected source of infection? No. lp1 Patient's initial sepsis screen is negative. Historical: - Allergies: 20:13 Codeine; ll1 20:13 Vicodin; ll1 - Home Meds: 20:38 atorvastatin Oral once daily [Active]; citalopram 20 mg tab 1 tab once daily [Active]; lp1 endomethasone [Active]; gabapentin 900 mg Oral tab 1 tab 3 times per day [Active]; glimepiride 4 mg Oral tab 1 tab once daily [Active]; Lamictal 100 mg Oral tab 1 tab 2 times per day [Active]; lisinopril Oral [Active]; Lyrica Oral 300 mg 3 times per day [Active]; metformin 500 mg Oral tab 1 tab 2 times per day [Active]; omeprazole 20 mg Oral cpDR 1 cap 2 times per day [Active]; Trazodone Oral nightly [Active]; Zantac 150 mg Oral tab once daily [Active]; - PMHx: 20:13 "Aortic valve leak"; Bipolar disorder; Depression; GERD; High Cholesterol; Diabetes - ll1 NIDDM; 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 - Social history:: Smoking status: Patient reports the use of cigarette tobacco products, denies chronic smoking, but will smoke occasionally. Screenin:37 Abuse screen: Denies threats or abuse. Denies injuries from another. Nutritional lp1 screening: No deficits noted. Tuberculosis screening: No symptoms or risk factors identified. Fall Risk None identified. Assessment: 20:36 General: Appears in no apparent distress. Behavior is calm, cooperative, appropriate lp1 for age. Pain: Complains of pain in right elbow and left elbow Pain currently is 7 out of 10 on a pain scale. Neuro: No deficits noted. Cardiovascular: No deficits noted. Respiratory: No deficits noted. GI: No deficits noted. : No signs and/or symptoms were reported regarding the genitourinary system. EENT: No signs and/or symptoms were reported regarding the EENT system. Derm: Skin is pink, warm \\T\\ dry. Musculoskeletal: Circulation, motion, and sensation intact. Range of motion: intact in all extremities. Vital Signs: 20:11 BP 118 / 66; Pulse 93; Resp 17; Temp 98.8; Pulse Ox 96% ; Pain 8/10; ll1 21:40 BP 114 / 68; Pulse 89; Resp 17; Temp 98.5; Pulse Ox 97% on R/A; rv ED Course: 19:56 Patient arrived in ED. cf2 20:08 Halima Hogue FNP-C is PHCP. snw 20:08 Julián Ko MD is Attending Physician. snw 20:12 Triage completed. ll1 20:13 Arm band placed on Patient placed in an exam room, on a stretcher. ll1 20:17 Radha Hilton, MIKIE is Primary Nurse. lp1 20:37 Patient has correct armband on for positive identification. lp1 21:40 No provider procedures requiring assistance completed. Patient did not have IV access rv during this emergency room visit. Administered Medications: No medications were administered Outcome: 21:20 Discharge ordered by . snw 21:40 Discharged to home ambulatory. rv 21:40 Condition: good 21:40 Discharge instructions given to patient, Instructed on discharge instructions, follow up and referral plans. medication usage, Demonstrated understanding of instructions, follow-up care, medications, Prescriptions given X 1. 21:41 Patient left the ED. rv Signatures: Halima Hogue, HOST/HOSTESS HEAD-C HOST/HOSTESS HEAD-Csnw Radha Hilton RN RN lp1 Alvarez Patel RN RN rv Shania Britt cf2 Milton Jordan RN RN ll1
--- NOTE | 2020-03-06 21:21 | EDPHYS ---
Physician Documentation [facility] Name: Janell Presley Age: 60 yrs Sex: Female : 1960 Arrival Date: 03/06/2020 Time: 19:56 Bed 8 Private MD: ED Physician Julián Ko HPI: 03/06 21:02 This 60 yrs old Female presents to ER via Ambulatory with complaints of Fall snw Injury, Arm Pain, COVID POSITIVE. Historical: - Allergies: 20:13 Codeine; ll1 20:13 Vicodin; ll1 - Home Meds: 20:38 atorvastatin Oral once daily [Active]; citalopram 20 mg tab 1 tab once daily [Active]; lp1 endomethasone [Active]; gabapentin 900 mg Oral tab 1 tab 3 times per day [Active]; glimepiride 4 mg Oral tab 1 tab once daily [Active]; Lamictal 100 mg Oral tab 1 tab 2 times per day [Active]; lisinopril Oral [Active]; Lyrica Oral 300 mg 3 times per day [Active]; metformin 500 mg Oral tab 1 tab 2 times per day [Active]; omeprazole 20 mg Oral cpDR 1 cap 2 times per day [Active]; Trazodone Oral nightly [Active]; Zantac 150 mg Oral tab once daily [Active]; - PMHx: 20:13 "Aortic valve leak"; Bipolar disorder; Depression; GERD; High Cholesterol; Diabetes - ll1 NIDDM; 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 - Social history:: Smoking status: Patient reports the use of cigarette tobacco products, denies chronic smoking, but will smoke occasionally. ROS: 21:01 Constitutional: Negative for fever, chills, and weight loss, Eyes: Negative for injury, snw pain, redness, and discharge, ENT: Negative for injury, pain, and discharge, denies edema Neck: Negative for injury, pain, and swelling, Cardiovascular: Negative for chest pain, palpitations, and edema, Respiratory: Negative for shortness of breath, cough, wheezing, and pleuritic chest pain, Abdomen/GI: Negative for abdominal pain, nausea, vomiting, diarrhea, and constipation, Back: Negative for injury and pain, : Negative for injury, bleeding, discharge, and swelling, MS/Extremity: Negative for deformity, + fall on 02/19, tenderness to upper forearm since that time Skin: Negative for injury, rash, and discoloration, Neuro: Negative for headache, weakness, numbness, tingling, and seizure, Psych: Negative for depression, anxiety, suicide ideation, homicidal ideation, and hallucinations. Exam: 21:02 Constitutional: This is a well developed, well nourished patient who is awake, alert, snw and in no acute distress. Head/Face: Normocephalic, atraumatic. Eyes: Pupils equal round and reactive to light, extra-ocular motions intact. Lids and lashes normal. Conjunctiva and sclera are non-icteric and not injected. Cornea within normal limits. Periorbital areas with no swelling, redness, or edema. ENT: Nares patent. No nasal discharge, no septal abnormalities noted. Tympanic membranes are normal and external auditory canals are clear. Oropharynx with no redness, swelling, or masses, exudates, or evidence of obstruction, uvula midline. Mucous membranes moist. Neck: Trachea midline, no thyromegaly or masses palpated, and no cervical lymphadenopathy. Supple, full range of motion without nuchal rigidity, or vertebral point tenderness. No Meningismus. Chest/axilla: Normal chest wall appearance and motion. Nontender with no deformity. No lesions are appreciated. Cardiovascular: Regular rate and rhythm with a normal S1 and S2. No gallops, murmurs, or rubs. Normal PMI, no JVD. No pulse deficits. Respiratory: Lungs have equal breath sounds bilaterally, clear to auscultation and percussion. No rales, rhonchi or wheezes noted. No increased work of breathing, no retractions or nasal flaring. Abdomen/GI: Soft, non-tender, with normal bowel sounds. No distension or tympany. No guarding or rebound. No evidence of tenderness throughout. Back: No spinal tenderness. No costovertebral tenderness. Full range of motion. Skin: Warm, dry with normal turgor. Normal color with no rashes, no lesions, and no evidence of cellulitis. Neuro: Awake and alert, GCS 15, oriented to person, place, time, and situation. Cranial nerves II-XII grossly intact. Motor strength 5/5 in all extremities. Sensory grossly intact. Cerebellar exam normal. Normal gait. Psych: Awake, alert, with orientation to person, place and time. Behavior, mood, and affect are within normal limits. 21:02 Musculoskeletal/extremity: Extremities: grossly normal except: contusion, ROM: intact in all extremities, Circulation is intact in all extremities. Sensation intact. 2x2 cm area of tenderness to soft tissue over ulna. Vital Signs: 20:11 BP 118 / 66; Pulse 93; Resp 17; Temp 98.8; Pulse Ox 96% ; Pain 8/10; ll1 21:40 BP 114 / 68; Pulse 89; Resp 17; Temp 98.5; Pulse Ox 97% on R/A; rv MDM: 20:54 Patient medically screened. snw 21:18 Data reviewed: vital signs, nurses notes. Data interpreted: Pulse oximetry: on room air snw is 96 %. Interpretation: acceptable. Test interpretation: by ED physician or midlevel provider: plain radiologic studies, left elbow negative for fracture, no noted fat pad signs. Counseling: I had a detailed discussion with the patient and/or guardian regarding: the historical points, exam findings, and any diagnostic results supporting the discharge/admit diagnosis, radiology results, the need for outpatient follow up, to return to the emergency department if symptoms worsen or persist or if there are any questions or concerns that arise at home. Special discussion: Based on the history and exam findings, there is no indication for further emergent testing or inpatient evaluation. I discussed with the patient/guardian the need to see the orthopedic surgeon for further evaluation of the symptoms. I discussed with the patient/guardian the need to see the primary care provider for further evaluation of the symptoms. 03/06 20:37 Order name: Elbow Left 3 View XRAY snw 03/06 21:18 Order name: Sling; Complete Time: 21:40 snw Administered Medications: No medications were administered Disposition: 03/07 01:50 Co-signature as Attending Physician, Julián Ko MD. [email or web address] Disposition: 03/06/20 21:20 Discharged to Home. Impression: Contusion of left forearm. - Condition is Stable. - Discharge Instructions: RICE for Routine Care of Injuries, Elbow Contusion, How to Use a Sling. - Prescriptions for Diclofenac Sodium 75 mg Oral Tablet Sustained Release - take 1 tablet by ORAL route 2 times per day; 30 tablet. - Medication Reconciliation Form, Thank You Letter, Antibiotic Education, Prescription Opioid Use form. - Follow up: Emergency Department; When: As needed; Reason: Worsening of condition. Follow up: Private Physician; When: 2 - 3 days; Reason: Recheck today's complaints, Continuance of care, Re-evaluation by your physician. Signatures: Dispatcher [employer] EDMS Halima Hogue, SARAH VIBRATOR EQUIPMENT TESTER-Csnw Radha Hilton, RN RN lp1 Alvarez Patel RN RN rv Milton Jordan RN RN ll1 Julián Ko MD MD 7 Corrections: (The following items were deleted from the chart) 03/06 21:11 20:59 Constitutional: This is a well developed, well nourished patient who is awake, snw alert, and in no acute distress. Head/Face: Normocephalic, atraumatic. Eyes: Pupils equal round and reactive to light, extra-ocular motions intact. Lids and lashes normal. Conjunctiva and sclera are non-icteric and not injected. Cornea within normal limits. Periorbital areas with no swelling, redness, or edema. Neck: Trachea midline, no thyromegaly or masses palpated, and no cervical lymphadenopathy. Supple, full range of motion without nuchal rigidity, or vertebral point tenderness. No Meningismus. Chest/axilla: Normal chest wall appearance and motion. Nontender with no deformity. No lesions are appreciated. Cardiovascular: Regular rate and rhythm with a normal S1 and S2. No gallops, murmurs, or rubs. Normal PMI, no JVD. No pulse deficits. Respiratory: Lungs have equal breath sounds bilaterally, clear to auscultation and percussion. No rales, rhonchi or wheezes noted. No increased work of breathing, no retractions or nasal flaring. Abdomen/GI: Soft, non-tender, with normal bowel sounds. No distension or tympany. No guarding or rebound. No evidence of tenderness throughout. Back: No spinal tenderness. No costovertebral tenderness. Full range of motion. Skin: Warm, dry with normal turgor. Normal color with no rashes, no lesions, and no evidence of cellulitis. MS/ Extremity: Pulses equal, no cyanosis. Neurovascular intact. Full, normal range of motion. Neuro: Awake and alert, GCS 15, oriented to person, place, time, and situation. Cranial nerves II-XII grossly intact. Motor strength 5/5 in all extremities. Sensory grossly intact. Cerebellar exam normal. Normal gait. Psych: Awake, alert, with orientation to person, place and time. Behavior, mood, and affect are within normal limits. snw 21:11 20:59 ENT: External ear(s): are unremarkable, Ear canal(s): are normal, Nose: is snw normal, Mouth: is normal, Posterior pharynx: erythema, that is mild, Voice: is normal, snw 21:15 21:01 Constitutional: Negative for fever, chills, and weight loss, Eyes: Negative for snw injury, pain, redness, and discharge, ENT: Negative for injury, pain, and discharge, itching in throat, denies edema, frequent throat clearance Neck: Negative for injury, pain, and swelling, Cardiovascular: Negative for chest pain, palpitations, and edema, Respiratory: Negative for shortness of breath, cough, wheezing, and pleuritic chest pain, Abdomen/GI: Negative for abdominal pain, nausea, vomiting, diarrhea, and constipation, Back: Negative for injury and pain, : Negative for injury, bleeding, discharge, and swelling, MS/Extremity: Negative for injury and deformity, Skin: Negative for injury, rash, and discoloration, Neuro: Negative for headache, weakness, numbness, tingling, and seizure, Psych: Negative for depression, anxiety, suicide ideation, homicidal ideation, and hallucinations, snw 21:20 21:18 Chart complete. [facility] sn 21:41 21:20 03/06/2020 21:20 Discharged to Home. Impression: Contusion of left forearm. rv Condition is Stable. Forms are Medication Reconciliation Form, Thank You Letter, Antibiotic Education, Prescription Opioid Use. Follow up: Emergency Department; When: As needed; Reason: Worsening of condition. Follow up: Private Physician; When: 2 - 3 days; Reason: Recheck today's complaints, Continuance of care, Re-evaluation by your physician. snw
[2020-03-06 22:08] VITALS: BP 114/68; TEMP 98.5; O2SAT 97
--- NOTE | 2020-03-07 09:17 | RAD REPORT ---
EXAM DESCRIPTION: RAD - Elbow Left 3 View - 03/06/2020 9:18 pm CLINICAL HISTORY: Pain;Smash injury, persistent pain following fall February 19 COMPARISON: None. FINDINGS: No fracture is identified and no elevated posterior fat pad. There is no dislocation or pe riosteal reaction noted. No foreign body or other soft tissue abnormality. Calcific density adjacen t to the lateral upper condyle not believed to be an acute process. IMPRESSION: Negative left elbow examination for acute finding.
== END 2020-03-06 21:41 | disposition home or self-care (01) ==
LOC: ER 19:53
DX: S50.12XA Contusion of left forearm, initial encounter (principal); W19.XXXA Unspecified fall, initial encounter; Y93.9 Activity, unspecified; Y92.9 Unspecified place or not applicable; Z88.5 Allergy status to narcotic agent; Z86.19 Personal history of other infectious and parasitic diseases; F31.9 Bipolar disorder, unspecified; E11.9 Type 2 diabetes mellitus without complications; F17.210 Nicotine dependence, cigarettes, uncomplicated
CPT/HCPCS: 99282